=== PATIENT | female | born 1995 | race Caucasian/White ===

== ENCOUNTER 2016-08-16 05:44 | Emergency (ER) | payer OTHER ==
[2016-08-16 07:00] LABS: BASO % 0.1 % (0.0-1.0); EOS # 0.1 K/mm3 (0.0-0.50); EOS % 1.3 % (0.0-3.0); LARGE UNSTAINED CELL # 0.2 K/mm3 (0.0-0.4); LARGE UNSTAINED CELL % 1.9 % (0.0-4.0); LYMPH # 2.1 K/mm3 (1.5-6.5); LYMPH % 19.7 % (24.0-44.0); MEAN CORPUSCULAR HGB CONC 33.9 g/dl (32.0-36.5); MEAN CORPUSCULAR VOLUME 82.6 fl (80.0-96.0); MONO # 0.5 K/mm3 (0.0-0.8); NEUTROPHILS # 7.7 K/mm3 (1.8-7.7); NEUTROPHILS % 72.1 % (36.0-66.0); PLATELET COUNT, AUTOMATED 459 k/mm3 (150-450); RED CELL DISTRIBUTION WIDTH 12.7 % (11.5-14.5); WHITE BLOOD COUNT 10.6 K/mm3 (4.0-10.0)
[2016-08-16 07:09] LABS: CONTROL LINE HCG INT CTR LINE PRESENT
[2016-08-16 07:17] LABS: ALBUMIN 3.7 GM/DL (3.2-5.2); ALBUMIN/GLOBULIN RATIO 1.03 (1.00-1.93); ALKALINE PHOSPHATASE 72 U/L (45-117); ALT/SGPT 26 U/L (12-78); AMYLASE 42 U/L (25-115); ANION GAP 9 MEQ/L (8-16); AST/SGOT 10 U/L (15-37); BILIRUBIN,DIRECT 0.1 MG/DL (0.0-0.2); BILIRUBIN,TOTAL 0.3 MG/DL (0.2-1.0); BLOOD UREA NITROGEN 10 MG/DL (7-18); CALCIUM LEVEL 9.1 MG/DL (8.5-10.1); CARBON DIOXIDE LEVEL 24 MEQ/L (21-32); CHLORIDE LEVEL 108 MEQ/L (98-107); CREATININE FOR GFR 0.79 MG/DL (0.55-1.02); GLUCOSE, FASTING 97 MG/DL (70-105); POTASSIUM SERUM 4.1 MEQ/L (3.5-5.1); SODIUM LEVEL 141 MEQ/L (136-145); TOTAL PROTEIN 7.3 GM/DL (6.4-8.2)
[2016-08-16 07:37] LABS: HCG, SERUM QUANTITATIVE 2855 MIU/ML
--- NOTE | 2016-08-16 08:33 | REP ---
Obstetric sonography: First trimester study. History: Vaginal bleeding. Findings: Transabdominal and transvaginal scanning demonstrate an empty uterus with dimensions of 9.4 x 4.2 x 5.1 cm. No intrauterine gestation is seen. Endometrium is somewhat heterogeneous measuring 1.1 cm. No focal uterine mass is seen. No free fluid is noted in the cul-de-sac. There is a 1.8 cm cystic area in the right ovary consistent with a corpus luteum. Right ovary dimensions of 3.1 x 2.4 x 2.9 cm. Doppler flow in the right ovary is normal with resistive index 0.6. The left ovary is normal measuring 2.5 x 2.9 x 2.2 cm. Its Doppler resistive index 0.9. Impression: Nonspecific findings; no intrauterine gestation seen. No adnexal mass or free fluid. Findings are consistent with spontaneous AB, early IUP, and ectopic cannot be excluded. Clinical and possibly sonographic followup advised. Signed by Best Romero MD 08/16/2016 08:47 A
--- NOTE | 2016-08-16 10:42 | EDDOCDS ---
Nurse's Notes [facility] Name: Gia Florentino Age: 20 yrs Sex: Female : 1995 Arrival Date: 08/16/2016 Time: 05:44 Bed 12 Private MD: Diagnosis: Spontaneous Presentation: 08/16 06:12 Presenting complaint: Patient states: she woke up this morning went to void and when cz wiping had clots and now having abdominal cramping. Risk factors: The patient reports no loss of conciousness prior to arrival. This patient has not had a hysterectomy. This patient has not begun menopause. Adult Sepsis Screening: The patient does not have new or worsening altered mentation. Patient's respiratory rate is less than 22. Systolic blood pressure is greater than 100. Patient has a qSOFA score of 0- Negative Sepsis Screen. Suicide/Homicide risk assessment- the patient denies having any suicidal and/or homicidal ideations and does not present with any other emotional, behavioral or mental health complaints. Status: The patient is a dependent. Transition of care: patient was not received from another setting of care. 06:12 Acuity: MATT Level 3 cz 06:12 Method Of Arrival: Walkin/Carried/Asstd cz Triage Assessment: 06:17 General: Appears distressed, uncomfortable. Pain: Location: pelvis Pain currently is 7 cz out of 10 on a pain scale. At worst was 10 out of 10 on a pain scale. HIV screening NA for this visit Offered previously. 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 Vitamin Oral - PMHx: none; - PSHx: none; - Social history: Smoking status: Patient states was never smoker of tobacco. No barriers to communication noted, The patient speaks fluent [place] Citizen, Speaks appropriately for age. - Family history: Not pertinent. - : The pt / caregiver states he / she is not on anticoagulants. Home medication list is obtained from the patient. - Exposure Risk Screening:: None identified. Screenin:51 Screening information is obtained from the patient. Fall risk: No risks identified. mlc Assistance ADL's: requires no assistance with activities of daily living. Abuse/DV Screen: The patient / caregiver reports he/she is: not in a situation that causes fear, pain or injury. Nutritional screening: No deficits noted. Advance Directives: Currently, there is no health care proxy. home support is adequate. Assessment: 06:51 General: Appears in no apparent distress, Behavior is cooperative, crying. Pain: Denies mlc pain. Neurological: Level of Consciousness is awake, alert, obeys commands, Oriented to person, place, time. Respiratory: Airway is patent Respiratory effort is even, unlabored, Respiratory pattern is regular. GI: Abdomen is non- distended Bowel sounds present X 4 quads. Abd is soft X 4 quads Denies nausea, vomiting. : Reports vaginal bleeding that is with clots. Derm: Skin is normal. 06:52 General: pt reports she is approx 7-8 weeks . . [facility] 07:02 Reassessment: report given to Taryn Dockery RN. [facility] 07:25 General: Appears in no apparent distress, Behavior is appropriate for age, cooperative. pml Pain: Location: pelvis Pain currently is 7 out of 10 on a pain scale. Neurological: Level of Consciousness is awake, alert, Oriented to person, place, time. Cardiovascular: Capillary refill < 3 seconds. Respiratory: Airway is patent Respiratory effort is even, unlabored. GI: Abdomen is non- distended. : Reports vaginal bleeding that is bright red with clots heavy flow. Derm: Skin is pink, warm & dry. 08:40 General: Assist provider with pelvic exam, product of conception noted in vaginal pml fault, collected and prepared as per [facility] policy. support extended to patient and spouse. . 09:38 General: Appears in no apparent distress, Behavior is appropriate for age, cooperative. pml Pain: Denies pain. Neurological: Level of Consciousness is awake, alert, Oriented to person, place, time. Cardiovascular: Capillary refill < 3 seconds. Respiratory: Airway is patent Respiratory effort is even, unlabored. GI: Abdomen is non- distended obese. : Reports vaginal bleeding that is decreased following pelvic exam and passage of POC. Derm: Skin is pink, warm & dry. 10:38 General: Appears in no apparent distress, Behavior is appropriate for age, cooperative. pml Pain: Denies pain. Neurological: Level of Consciousness is awake, alert, Oriented to person, place, time. Cardiovascular: Capillary refill < 3 seconds. Respiratory: Airway is patent Respiratory effort is even, unlabored. GI: Abdomen is non- distended obese. : Reports vaginal bleeding that is bright red light flow. Derm: Skin is pink, warm & dry. Vital Signs: 06:17 BP 147 / 100; Pulse 110; Resp 16; Temp 98.9; Pulse Ox 95% on R/A; Weight 113.4 kg; cz Height 5 ft. 5 in. (165.10 cm); 06:51 BP 131 / 85 Supine; Pulse 85; mlc 06:51 BP 129 / 80 Sitting; Pulse 91; mlc 06:51 BP 146 / 85 Standing; Pulse 92; mlc 10:12 BP 124 / 76; Pulse 74; Resp 18; Temp 99.0(O); Pulse Ox 99% on R/A; Pain 5/10; ct3 10:36 BP 129 / 73; Pulse 80; Resp 18; Temp 97.7(O); Pulse Ox 96% on R/A; Pain 5/10; nb2 06:17 Body Mass Index 41.60 (113.40 kg, 165.10 cm) Vitals: 06:17 Log In Time: August 16, 2016 at 05:46. ED Course: 05:46 Patient visited by Radha Soto Reg. hs2 05:46 Patient moved to Waiting hs2 06:16 Triage Initiated cz 06:18 Padma Seaman,RN is Primary Nurse. cz 06:18 Patient moved to 12 cz 06:46 Patient visited by Sridhar Tejeda PCA. kb5 06:49 Patient visited by Gracia Blanchard LPN. cp1 06:49 Amylase Sent. cp1 06:49 Basic Metabolic Profile Sent. cp1 06:49 Lipase Sent. cp1 06:49 Liver Profile Sent. cp1 06:50 HCG,Serum Qualitative Sent. cp1 06:50 Type & Screen Sent. cp1 06:50 CBC with Diff Sent. cp1 06:52 Patient visited by Padma Seaman RN. mlc 06:53 Inserted saline lock: 20 gauge in right antecubital area and blood collected. The cp1 patient tolerated the procedure well. 06:55 Natalie Boss MD is Attending Physician. ml 06:55 Patient visited by Natalie Boss MD. ml 07:23 Taryn Dockery,LEXII is Primary Nurse. pml 07:25 The patient / caregiver is instructed regarding the plan of care and ED course. Patient pml has correct armband on for positive identification. Placed in gown. Bed in low position. Call light in reach. Side rails up X2. 07:26 Patient visited by Taryn Dockery,LEXII. pml 07:26 Patient moved to Ultrasound br3 07:29 Primary Nurse role handed off by Padma Seaman RN [id number] 08:09 Patient moved to 12 br3 08:22 [facility] Payment Agreement was scanned into [employer] and attached to record. [id number] 08:25 Assist provider with pelvic exam: Set up pelvic tray. Specimens sent to lab. POC pml passed, sent to pathology, Performed by Natalie Boss MD Patient tolerated well. 08:41 1ST TRIMESTER US Returned. EDMS 08:42 Patient visited by Taryn Dockery RN. pml 09:17 Patient visited by Glendy Abreu PCA. ct3 09:37 Draw Rhogam Sent. pml 09:39 Patient visited by Taryn Dockery RN. pml 10:01 Patient visited by Taryn Dockery,LEXII. pml 10:06 Scott Lemus MD is Referral Physician. ml 10:13 Patient visited by Glendy Abreu PCA. ct3 10:36 Patient visited by Vane Roy. nb2 Administered Medications: 06:50 Drug: NS 0.9% 1000 ml [sodium chloride 0.9 % intravenous solution] Route: IV; Rate: mlc bolus; Site: right antecubital; 10:40 Follow up: IV Status: Completed infusion; IV Intake: 1000ml pml 08:38 CANCELLED (Other Intervention Used): Tetanus- Diptheria-Acellular Pertussis 0.5 ml IM ml once; Routine booster 10-64yrs, >64 with child contact [employer] 09:37 Drug: -RhoGAM Ultra-Filtered Plus 300 mcg [RhoGAM Ultra-Filtered PLUS 1,500 unit (300 pml mcg) intramuscular syringe (300 mcg)] Route: IM; Site: right gluteus; Intake: 10:40 IV: 1000.00ml; Total: 1000.00ml. pml Order Results: Lab Order: CBC with Diff; SPEC'M 08/16/16 06:47 Test: WHITE BLOOD COUNT; Value: 10.6; Range: 4.0-10.0; Abnormal: Above high normal; Units: K/mm3; Status: F Test: RED BLOOD COUNT; Value: 4.99; Range: 4.00-5.40; Units: M/mm3; Status: F Test: HEMOGLOBIN; Value: 14.0; Range: 12.0-16.0; Units: g/dl; Status: F Test: HEMATOCRIT; Value: 41.2; Range: 36.0-47.0; Units: %; Status: F Test: MEAN CORPUSCULAR VOLUME; Value: 82.6; Range: 80.0-96.0; Units: fl; Status: F Test: MEAN CORPUSCULAR HEMOGLOBIN; Value: 28.0; Range: 27.0-33.0; Units: pg; Status: F Test: MEAN CORPUSCULAR HGB CONC; Value: 33.9; Range: 32.0-36.5; Units: g/dl; Status: F Test: RED CELL DISTRIBUTION WIDTH; Value: 12.7; Range: 11.5-14.5; Units: %; Status: F Test: PLATELET COUNT, AUTOMATED; Value: 459; Range: 150-450; Abnormal: Above high normal; Units: k/mm3; Status: F Test: NEUTROPHILS %; Value: 72.1; Range: 36.0-66.0; Abnormal: Above high normal; Units: %; Status: F Test: LYMPH %; Value: 19.7; Range: 24.0-44.0; Abnormal: Below low normal; Units: %; Status: F Test: MONO %; Value: 5.0; Range: 0.0-5.0; Units: %; Status: F Test: EOS %; Value: 1.3; Range: 0.0-3.0; Units: %; Status: F Test: BASO %; Value: 0.1; Range: 0.0-1.0; Units: %; Status: F Test: LARGE UNSTAINED CELL %; Value: 1.9; Range: 0.0-4.0; Units: %; Status: F Test: NEUTROPHILS #; Value: 7.7; Range: 1.8-7.7; Units: K/mm3; Status: F Test: LYMPH #; Value: 2.1; Range: 1.5-6.5; Units: K/mm3; Status: F Test: MONO #; Value: 0.5; Range: 0.0-0.8; Units: K/mm3; Status: F Test: EOS #; Value: 0.1; Range: 0.0-0.50; Units: K/mm3; Status: F Test: BASO #; Value: 0.0; Range: 0.0-0.2; Units: K/mm3; Status: F Test: LARGE UNSTAINED CELL #; Value: 0.2; Range: 0.0-0.4; Units: K/mm3; Status: F Lab Order: Type & Screen; [facility] 08/16/16 06:47 Test: BLOOD TYPE; Value: A NEG; Status: F Test: AB SCREEN (INDIRECT CAITLIN)GEL; Value: NEGATIVE; Status: F Lab Order: HCG,Serum Qualitative; 08/16/16 06:47 Test: HCG, SERUM QUALITATIVE; Value: POSITIVE; Range: NEGATIVE; Abnormal: Abnormal; Status: F Lab Order: Amylase; [facility] 08/16/16 06:47 Test: AMYLASE; Value: 42; Range: 25-115; Units: U/L; Status: F Lab Order: Basic Metabolic Profile; 08/16/16 06:47 Test: GLUCOSE, FASTING; Value: 97; Range: 70-105; Units: MG/DL; Status: F Test: BLOOD UREA NITROGEN; Value: 10; Range: 7-18; Units: MG/DL; Status: F Test: CREATININE FOR GFR; Value: 0.79; Range: 0.55-1.02; Units: MG/DL; Status: F Test: SODIUM LEVEL; Value: 141; Range: 136-145; Units: MEQ/L; Status: F Test: POTASSIUM SERUM; Value: 4.1; Range: 3.5-5.1; Units: MEQ/L; Status: F Test: CHLORIDE LEVEL; Value: 108; Range: 98-107; Abnormal: Above high normal; Units: MEQ/L; Status: F Test: CARBON DIOXIDE LEVEL; Value: 24; Range: 21-32; Units: MEQ/L; Status: F Test: ANION GAP; Value: 9; Range: 8-16; Units: MEQ/L; Status: F Test: CALCIUM LEVEL; Value: 9.1; Range: 8.5-10.1; Units: MG/DL; Status: F Lab Order: Lipase; [facility] 08/16/16 06:47 Test: LIPASE; Value: 80; Range: 73-393; Units: U/L; Status: F Lab Order: Liver Profile; [facility] 08/16/16 06:47 Test: AST/SGOT; Value: 10; Range: 15-37; Abnormal: Below low normal; Units: U/L; Status: F Test: ALT/SGPT; Value: 26; Range: 12-78; Units: U/L; Status: F Test: ALKALINE PHOSPHATASE; Value: 72; Range: 45-117; Units: U/L; Status: F Test: BILIRUBIN,TOTAL; Value: 0.3; Range: 0.2-1.0; Units: MG/DL; Status: F Test: BILIRUBIN,DIRECT; Value: 0.1; Range: 0.0-0.2; Units: MG/DL; Status: F Test: TOTAL PROTEIN; Value: 7.3; Range: 6.4-8.2; Units: GM/DL; Status: F Test: ALBUMIN; Value: 3.7; Range: 3.2-5.2; Units: GM/DL; Status: F Test: ALBUMIN/GLOBULIN RATIO; Value: 1.03; Range: 1.00-1.93; Status: F Lab Order: Wet Prep; [facility] 08/16/16 10:05 Test: WET PREP; Value: WET PREP RESULT; Status: F Test: WET PREP; Value: MANY RBC; Status: F Test: WET PREP; Value: FEW EPITHELIAL CELLS PRESENT; Status: F Test: WET PREP; Value: FEW LONG RODS PRESENT; Status: F Lab Order: HCG, SERUM QUANTITATIVE; [facility] 08/16/16 06:47 Test: HCG, SERUM QUANTITATIVE; Value: 2855; Units: MIU/ML; Status: F Test Note: ; GESTATIONAL AGE APPROXIMATE HCG RANGE (MIU/ML) 0.2-1 WEEK 5-50 1-2 WEEKS 50-500 2-3 WEEKS 100-5,000 3-4 WEEKS 500-10,000 4-5 WEEKS 1,000-50,000 5-6 WEEKS 10,000-100,000 6-8 WEEKS 15,000-200,000 2-3 MONTHS 10,000-100,000 NON FEMALES LESS THAN 3.0 Patient samples may contain human heterophilic antibodies that could react with immunoassays to give falsely elevated or depressed results. This assay has been designed to minimize interference from heterophilic antibodies. Elevated hCG levels have also been associated with trophoblastic disease and nontrophoblastic neoplasms. The possibility of having these diseases should be considered before a diagnosis of is made. This test is not intended for use as a surrogate marker for aiding in the diagnosis or monitoring the treatment of cancer patients. [employer] methodology. Radiology Order: 1ST TRIMESTER US Test: 1ST TRIMESTER US REASON FOR EXAMINATION: vag bleeding 06/24/16 lmp; Obstetric sonography: First trimester study.; ; History: Vaginal bleeding.; ; Findings: Transabdominal and transvaginal scanning demonstrate an empty uterus; with dimensions of 9.4 x 4.2 x 5.1 cm. No intrauterine gestation is seen.; Endometrium is somewhat heterogeneous measuring 1.1 cm. No focal uterine mass is; seen. No free fluid is noted in the cul-de-sac. There is a 1.8 cm cystic area; in the right ovary consistent with a corpus luteum. Right ovary dimensions of; 3.1 x 2.4 x 2.9 cm. Doppler flow in the right ovary is normal with resistive; index 0.6.; ; The left ovary is normal measuring 2.5 x 2.9 x 2.2 cm. Its Doppler resistive; index 0.9.; ; Impression:; ; Nonspecific findings; no intrauterine gestation seen. No adnexal mass or free; fluid. Findings are consistent with spontaneous AB, early IUP, and ectopic; cannot be excluded. Clinical and possibly sonographic followup; advised.; ; ; Signed by; Best Romero MD 08/16/2016 08:47 A; Outcome: 10:06 Discharge ordered by Provider. ml 10:38 Discharge Assessment: Patient awake, alert and oriented x 3. No cognitive and/or pml functional deficits noted. Patient verbalized understanding of disposition instructions. patient administered narcotics - no. The following High Risk Discharge criteria are identified: None. Discharged to home ambulatory, with significant other. Condition: good Condition: stable. Discharge instructions given to patient, Instructed on discharge instructions, follow up and referral plans. Demonstrated understanding of instructions, Pt was receptive of discharge instructions/ teaching. Ultrasound Study completed. Property sent home with patient. 10:41 Patient left the ED. pml Signatures: Dispatcher [employer] EDMS Natalie Boss MD MD Ronaldo Dao RN RN cz Sridhar Tejeda, WIRE ROPE FABRICATION SUPERVISOR WIRE ROPE FABRICATION SUPERVISOR kb5 Elaine Galo br3 Gracia Blanchard,HEALTH CARE ATTORNEY HEALTH CARE ATTORNEY cp1 Glnedy Abreu, WIRE ROPE FABRICATION SUPERVISOR WIRE ROPE FABRICATION SUPERVISOR ct3 Taryn DockeryRN RN Mitra SiblyeRN RN js13 Padma SeamanRN RN [facility] Radha Soto, Reg Reg hs2 Baburke, Vane nb2 Tiffany Morrison dm19 Corrections: (The following items were deleted from the chart) 08:56 06:17 LMP 06/24/2016 cz pml MTDD
--- NOTE | 2016-08-16 10:42 | EDDOCDS ---
Physician Documentation [facility] Name: Gia Florentino Age: 20 yrs Sex: Female : 1995 Arrival Date: 08/16/2016 Time: 05:44 Bed 12 Private MD: Disposition: 08/16/16 10:06 Discharged to Home/Self Care. Impression: Spontaneous . - Condition is Stable. - Discharge Instructions: Miscarriage. - Medication Reconciliation, Local Pharmacy Hours form. - Follow up: Allan, MD Scott; When: 1 - 2 days. - Problem is new. - Symptoms have improved. - Notes: Ispoke to Dr Lemus who would like to see you in follow up. Return if increasing pain, vaginal bleeding or fever. Historical: - Allergies: No known drug Allergies; - Home Meds: 1. Vitamin Oral - PMHx: none; - PSHx: none; - Social history: Smoking status: Patient states was never smoker of tobacco. No barriers to communication noted, The patient speaks fluent Turk[place], Speaks appropriately for age. - Family history: Not pertinent. - : The pt / caregiver states he / she is not on anticoagulants. Home medication list is obtained from the patient. - Exposure Risk Screening:: None identified. 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 5 in. (165.10 cm); 06:51 BP 131 / 85 Supine; Pulse 85; mlc 06:51 BP 129 / 80 Sitting; Pulse 91; mlc 06:51 BP 146 / 85 Standing; Pulse 92; mlc 10:12 BP 124 / 76; Pulse 74; Resp 18; Temp 99.0(O); Pulse Ox 99% on R/A; Pain 5/10; ct3 10:36 BP 129 / 73; Pulse 80; Resp 18; Temp 97.7(O); Pulse Ox 96% on R/A; Pain 5/10; nb2 06:17 Body Mass Index 41.60 (113.40 kg, 165.10 cm) cz MDM: 06:35 Orthostatic VS ordered. ml 06:35 IV Saline Lock ordered. mm11 06:35 Undress patient appropriately for examination ordered. mm11 06:35 NS 0.9% 1000 ml IV at bolus once ordered. mm11 06:36 CBC with Diff Ordered. EDMS 06:36 HCG,Serum Qualitative Ordered. EDMS 06:36 Amylase Ordered. EDMS 06:36 Basic Metabolic Profile Ordered. EDMS 06:36 Lipase Ordered. EDMS 06:36 Liver Profile Ordered. EDMS 06:36 Type & Screen Ordered. EDMS 06:37 NOTHING BY MOUTH+DIET ordered. EDMS 07:06 Set up pelvic ordered. ml 07:07 GC & Chlamydia Amplification Ordered. EDMS 07:07 Wet Prep Ordered. EDMS 07:12 HCG, SERUM QUANTITATIVE Ordered. EDMS 07:12 1ST TRIMESTER US Ordered. EDMS 08:00 TRANSVAGINAL US Ordered. EDMS 08:00 DUPLEX SCAN LIMITED (DOPPLER) Ordered. EDMS 08:22 [facility] Payment Agreement was scanned into [email or web address] and attached to record. dm19 08:22 Financial registration complete. dm19 08:37 -RhoGAM Ultra-Filtered Plus 300 mcg IM once ordered. ml 08:37 Misc. Nursing Order ordered. ml 08:38 Draw Rhogam Ordered. EDMS 08:50 Products of Conception ordered. ml 09:12 Products of Conception complete. ar3 09:13 PATHOLOGY REQUEST FOR SERVICE Ordered. EDMS 10:05 CBC with Diff Reviewed. ml 10:05 HCG,Serum Qualitative Reviewed. ml 10:05 Basic Metabolic Profile Reviewed. ml 10:05 Liver Profile Reviewed. ml 10:05 Type & Screen Reviewed. ml 10:05 Amylase Reviewed. ml 10:05 Lipase Reviewed. ml 10:05 HCG, SERUM QUANTITATIVE Reviewed. ml 10:05 1ST TRIMESTER US Reviewed. ml Administered Medications: 06:50 Drug: NS 0.9% 1000 ml [sodium chloride 0.9 % intravenous solution] Route: IV; Rate: mlc bolus; Site: right antecubital; 10:40 Follow up: IV Status: Completed infusion; IV Intake: 1000ml pml 08:38 CANCELLED (Other Intervention Used): Tetanus- Diptheria-Acellular Pertussis 0.5 ml IM ml once; Routine booster 10-64yrs, >64 with child [facility] 09:37 Drug: -RhoGAM Ultra-Filtered Plus 300 mcg [RhoGAM Ultra-Filtered PLUS 1,500 unit (300 pml mcg) intramuscular syringe (300 mcg)] Route: IM; Site: right gluteus; Signatures: Dispatcher [employer] EDMS Natalie Boss MD MD ml Zecher, Calvin, RN RN Lemuel Harris, DO mm11 Allyson, Stacy, TRAFFIC SIGN ERECTION SUPERVISOR TRAFFIC SIGN ERECTION SUPERVISOR ar3 Taryn Dockery RN RN pml Booth, Mandy, RN RN [facility] Tiffany Morrison dm19 The chart was reviewed and I authenticate all verbal orders and agree with the evaluation and treatment provided.Corrections: (The following items were deleted from the chart) 06:37 06:36 CBC WITH DIFFERENTIAL+LAB ordered. EDMS EDMS 06:37 06:36 HCG, QUALITATIVE+LAB ordered. EDMS EDMS 06:37 06:37 TYPE & SCREEN+BBK ordered. EDMS EDMS 07:12 07:05 HCG, SERUM QUANTITATIVE+LAB ordered. EDMS EDMS 07:12 07:05 US OBS SINGEL GEST+US ordered. EDMS EDMS 08:38 08:38 Tetanus- Diptheria-Acellular Pertussis 0.5 ml IM once; Routine booster ml 10-64yrs, >64 with child contact Sigifredo Wild ordered. ml Attachments: 08:22 [facility] Payment Agreement dm19 MTDD
--- NOTE | 2016-08-19 10:50 | EDDOCDS ---
Physician Documentation [facility] Name: Gia Florentino Age: 20 yrs Sex: Female : 1995 Arrival Date: 08/16/2016 Time: 05:44 Bed 12 Private MD: Disposition: 08/16/16 10:06 Discharged to Home/Self Care. Impression: Spontaneous . - Condition is Stable. - Discharge Instructions: Miscarriage. - Medication Reconciliation, Local Pharmacy Hours form. - Follow up: Allan, MD Scott; When: 1 - 2 days. - Problem is new. - Symptoms have improved. - Notes: Ispoke to Dr Lemus who would like to see you in follow up. Return if increasing pain, vaginal bleeding or fever. Historical: - Allergies: No known drug Allergies; - Home Meds: 1. Vitamin Oral - PMHx: none; - PSHx: none; - Social history: Smoking status: Patient states was never smoker of tobacco. No barriers to communication noted, The patient speaks fluent Greenlandic, Speaks appropriately for age. - Family history: Not pertinent. - : The pt / caregiver states he / she is not on anticoagulants. Home medication list is obtained from the patient. - Exposure Risk Screening:: None identified. 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 5 in. (165.10 cm); 06:51 BP 131 / 85 Supine; Pulse 85; mlc 06:51 BP 129 / 80 Sitting; Pulse 91; mlc 06:51 BP 146 / 85 Standing; Pulse 92; mlc 10:12 BP 124 / 76; Pulse 74; Resp 18; Temp 99.0(O); Pulse Ox 99% on R/A; Pain 5/10; ct3 10:36 BP 129 / 73; Pulse 80; Resp 18; Temp 97.7(O); Pulse Ox 96% on R/A; Pain 5/10; nb2 06:17 Body Mass Index 41.60 (113.40 kg, 165.10 cm) cz MDM: 06:35 Orthostatic VS ordered. ml 06:35 IV Saline Lock ordered. mm11 06:35 Undress patient appropriately for examination ordered. mm11 06:35 NS 0.9% 1000 ml IV at bolus once ordered. mm11 06:36 CBC with Diff Ordered. EDMS 06:36 HCG,Serum Qualitative Ordered. EDMS 06:36 Amylase Ordered. EDMS 06:36 Basic Metabolic Profile Ordered. EDMS 06:36 Lipase Ordered. EDMS 06:36 Liver Profile Ordered. EDMS 06:36 Type & Screen Ordered. EDMS 06:37 NOTHING BY MOUTH+DIET ordered. EDMS 07:06 Set up pelvic ordered. ml 07:07 GC & Chlamydia Amplification Ordered. EDMS 07:07 Wet Prep Ordered. EDMS 07:12 HCG, SERUM QUANTITATIVE Ordered. EDMS 07:12 1ST TRIMESTER US Ordered. EDMS 08:00 TRANSVAGINAL US Ordered. EDMS 08:00 DUPLEX SCAN LIMITED (DOPPLER) Ordered. EDMS 08:22 [facility] [place] Payment Agreement was scanned into [employer] and attached to record. dm19 08:22 Financial registration complete. dm19 08:37 -RhoGAM Ultra-Filtered Plus 300 mcg IM once ordered. ml 08:37 Misc. Nursing Order ordered. ml 08:38 Draw Rhogam Ordered. EDMS 08:50 Products of Conception ordered. ml 09:12 Products of Conception complete. ar3 09:13 PATHOLOGY REQUEST FOR SERVICE Ordered. EDMS 10:05 CBC with Diff Reviewed. ml 10:05 HCG,Serum Qualitative Reviewed. ml 10:05 Basic Metabolic Profile Reviewed. ml 10:05 Liver Profile Reviewed. ml 10:05 Type & Screen Reviewed. ml 10:05 Amylase Reviewed. ml 10:05 Lipase Reviewed. ml 10:05 HCG, SERUM QUANTITATIVE Reviewed. ml 10:05 1ST TRIMESTER US Reviewed. ml 21:23 T-Sheet-- Draft Copy was scanned into [employer] and attached to record. klr 08/17 09:56 Other: CERTIFICATION INFO was scanned into [employer] and attached to record. gb Administered Medications: 08/16 06:50 Drug: NS 0.9% 1000 ml [sodium chloride 0.9 % intravenous solution] Route: IV; Rate: mlc bolus; Site: right antecubital; 10:40 Follow up: IV Status: Completed infusion; IV Intake: 1000ml pml 08:38 CANCELLED (Other Intervention Used): Tetanus- Diptheria-Acellular Pertussis 0.5 ml IM ml once; Routine booster 10-64yrs, >64 with child contact Sigifredo Omnicell 09:37 Drug: -RhoGAM Ultra-Filtered Plus 300 mcg [RhoGAM Ultra-Filtered PLUS 1,500 unit (300 pml mcg) intramuscular syringe (300 mcg)] Route: IM; Site: right gluteus; Signatures: Dispatcher [employer] EDNatalie Haley MD MD ml Zecher, Calvin, RN RN cz Princess Saleh, Reg Reg gb Lemuel Molina, DO DO mm11 Allyson, Stacy, EXTRACTOR OPERATOR SOLVENT PROCESS EXTRACTOR OPERATOR SOLVENT PROCESS ar3 Taryn Dockery RN RN Padma Moses RN RN mlc Redder, Kathie klr McLear, Diane dm19 The chart was reviewed and I authenticate all verbal orders and agree with the evaluation and treatment provided.Corrections: (The following items were deleted from the chart) 06:37 06:36 CBC WITH DIFFERENTIAL+LAB ordered. EDMS EDMS 06:37 06:36 HCG, QUALITATIVE+LAB ordered. EDMS EDMS 06:37 06:37 TYPE & SCREEN+BBK ordered. EDMS EDMS 07:12 07:05 HCG, SERUM QUANTITATIVE+LAB ordered. EDMS EDMS 07:12 07:05 US OBS SINGEL GEST+US ordered. EDMS EDMS 08:38 08:38 Tetanus- Diptheria-Acellular Pertussis 0.5 ml IM once; Routine booster ml 10-64yrs, >64 with child contact [place] ordered. ml Attachments: 08:22 [facility] Payment Agreement dm19 21:23 T-Sheet-- Draft Copy klr Chart Complete MTDD
--- NOTE | 2016-08-19 10:50 | EDDOCDS ---
Physician Documentation [facility] Name: Gia Florentino Age: 20 yrs Sex: Female : 1995 Arrival Date: 08/16/2016 Time: 05:44 Bed 12 Private MD: Disposition: 08/16/16 10:06 Discharged to Home/Self Care. Impression: Spontaneous . - Condition is Stable. - Discharge Instructions: Miscarriage. - Medication Reconciliation, Local Pharmacy Hours form. - Follow up: Allan, MD Scott; When: 1 - 2 days. - Problem is new. - Symptoms have improved. - Notes: Ispoke to Dr Lemus who would like to see you in follow up. Return if increasing pain, vaginal bleeding or fever. Historical: - Allergies: No known drug Allergies; - Home Meds: 1. Vitamin Oral - PMHx: none; - PSHx: none; - Social history: Smoking status: Patient states was never smoker of tobacco. No barriers to communication noted, The patient speaks fluent Maori, Speaks appropriately for age. - Family history: Not pertinent. - : The pt / caregiver states he / she is not on anticoagulants. Home medication list is obtained from the patient. - Exposure Risk Screening:: None identified. 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 5 in. (165.10 cm); 06:51 BP 131 / 85 Supine; Pulse 85; mlc 06:51 BP 129 / 80 Sitting; Pulse 91; mlc 06:51 BP 146 / 85 Standing; Pulse 92; mlc 10:12 BP 124 / 76; Pulse 74; Resp 18; Temp 99.0(O); Pulse Ox 99% on R/A; Pain 5/10; ct3 10:36 BP 129 / 73; Pulse 80; Resp 18; Temp 97.7(O); Pulse Ox 96% on R/A; Pain 5/10; nb2 06:17 Body Mass Index 41.60 (113.40 kg, 165.10 cm) cz MDM: 06:35 Orthostatic VS ordered. ml 06:35 IV Saline Lock ordered. mm11 06:35 Undress patient appropriately for examination ordered. mm11 06:35 NS 0.9% 1000 ml IV at bolus once ordered. mm11 06:36 CBC with Diff Ordered. EDMS 06:36 HCG,Serum Qualitative Ordered. EDMS 06:36 Amylase Ordered. EDMS 06:36 Basic Metabolic Profile Ordered. EDMS 06:36 Lipase Ordered. EDMS 06:36 Liver Profile Ordered. EDMS 06:36 Type & Screen Ordered. EDMS 06:37 NOTHING BY MOUTH+DIET ordered. EDMS 07:06 Set up pelvic ordered. ml 07:07 GC & Chlamydia Amplification Ordered. EDMS 07:07 Wet Prep Ordered. EDMS 07:12 HCG, SERUM QUANTITATIVE Ordered. EDMS 07:12 1ST TRIMESTER US Ordered. EDMS 08:00 TRANSVAGINAL US Ordered. EDMS 08:00 DUPLEX SCAN LIMITED (DOPPLER) Ordered. EDMS 08:22 [facility] Payment Agreement was scanned into [employer] and attached to record. dm19 08:22 Financial registration complete. dm19 08:37 -RhoGAM Ultra-Filtered Plus 300 mcg IM once ordered. ml 08:37 Misc. Nursing Order ordered. ml 08:38 Draw Rhogam Ordered. EDMS 08:50 Products of Conception ordered. ml 09:12 Products of Conception complete. ar3 09:13 PATHOLOGY REQUEST FOR SERVICE Ordered. EDMS 10:05 CBC with Diff Reviewed. ml 10:05 HCG,Serum Qualitative Reviewed. ml 10:05 Basic Metabolic Profile Reviewed. ml 10:05 Liver Profile Reviewed. ml 10:05 Type & Screen Reviewed. ml 10:05 Amylase Reviewed. ml 10:05 Lipase Reviewed. ml 10:05 HCG, SERUM QUANTITATIVE Reviewed. ml 10:05 1ST TRIMESTER US Reviewed. ml 21:23 T-Sheet-- Draft Copy was scanned into [employer] and attached to record. klr 08/17 09:56 Other: CERTIFICATION INFO was scanned into [employer] and attached to record. gb Administered Medications: 08/16 06:50 Drug: NS 0.9% 1000 ml [sodium chloride 0.9 % intravenous solution] Route: IV; Rate: mlc bolus; Site: right antecubital; 10:40 Follow up: IV Status: Completed infusion; IV Intake: 1000ml pml 08:38 CANCELLED (Other Intervention Used): Tetanus- Diptheria-Acellular Pertussis 0.5 ml IM ml once; Routine booster 10-64yrs, >64 with child contact Sigifredo Omnicell 09:37 Drug: -RhoGAM Ultra-Filtered Plus 300 mcg [RhoGAM Ultra-Filtered PLUS 1,500 unit (300 pml mcg) intramuscular syringe (300 mcg)] Route: IM; Site: right gluteus; Signatures: Dispatcher [employer] EDNatalie Haley MD MD ml Zecher, Calvin, RN RN cz Princess Saleh, Reg Reg gb Lemuel Molina, DO DO mm11 Allyson, Stacy, EDUCATIONAL INTERPRETER EDUCATIONAL INTERPRETER ar3 Taryn Dockery RN RN Padma Moses RN RN mlc Redder, Kathie klr McLear, Diane dm19 The chart was reviewed and I authenticate all verbal orders and agree with the evaluation and treatment provided.Corrections: (The following items were deleted from the chart) 06:37 06:36 CBC WITH DIFFERENTIAL+LAB ordered. EDMS EDMS 06:37 06:36 HCG, QUALITATIVE+LAB ordered. EDMS EDMS 06:37 06:37 TYPE & SCREEN+BBK ordered. EDMS EDMS 07:12 07:05 HCG, SERUM QUANTITATIVE+LAB ordered. EDMS EDMS 07:12 07:05 US OBS SINGEL GEST+US ordered. EDMS EDMS 08:38 08:38 Tetanus- Diptheria-Acellular Pertussis 0.5 ml IM once; Routine booster ml 10-64yrs, >64 with child contact [place] ordered. ml Attachments: 08:22 [facility] Payment Agreement dm19 21:23 T-Sheet-- Draft Copy klr Chart Complete MTDD
--- NOTE | 2016-08-19 10:51 | EDDOCDS ---
Nurse's Notes [facility] Name: Gia Florentino Age: 20 yrs Sex: Female : 1995 Arrival Date: 08/16/2016 Time: 05:44 Bed 12 Private MD: Diagnosis: Spontaneous Presentation: 08/16 06:12 Presenting complaint: Patient states: she woke up this morning went to void and when cz wiping had clots and now having abdominal cramping. Risk factors: The patient reports no loss of conciousness prior to arrival. This patient has not had a hysterectomy. This patient has not begun menopause. Adult Sepsis Screening: The patient does not have new or worsening altered mentation. Patient's respiratory rate is less than 22. Systolic blood pressure is greater than 100. Patient has a qSOFA score of 0- Negative Sepsis Screen. Suicide/Homicide risk assessment- the patient denies having any suicidal and/or homicidal ideations and does not present with any other emotional, behavioral or mental health complaints. Status: The patient is a dependent. Transition of care: patient was not received from another setting of care. 06:12 Acuity: MATT Level 3 cz 06:12 Method Of Arrival: Walkin/Carried/Asstd cz Triage Assessment: 06:17 General: Appears distressed, uncomfortable. Pain: Location: pelvis Pain currently is 7 cz out of 10 on a pain scale. At worst was 10 out of 10 on a pain scale. HIV screening NA for this visit Offered previously. 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 Vitamin Oral - PMHx: none; - PSHx: none; - Social history: Smoking status: Patient states was never smoker of tobacco. No barriers to communication noted, The patient speaks fluent Libyan, Speaks appropriately for age. - Family history: Not pertinent. - : The pt / caregiver states he / she is not on anticoagulants. Home medication list is obtained from the patient. - Exposure Risk Screening:: None identified. Screenin:51 Screening information is obtained from the patient. Fall risk: No risks identified. mlc Assistance ADL's: requires no assistance with activities of daily living. Abuse/DV Screen: The patient / caregiver reports he/she is: not in a situation that causes fear, pain or injury. Nutritional screening: No deficits noted. Advance Directives: Currently, there is no health care proxy. home support is adequate. Assessment: 06:51 General: Appears in no apparent distress, Behavior is cooperative, crying. Pain: Denies mlc pain. Neurological: Level of Consciousness is awake, alert, obeys commands, Oriented to person, place, time. Respiratory: Airway is patent Respiratory effort is even, unlabored, Respiratory pattern is regular. GI: Abdomen is non- distended Bowel sounds present X 4 quads. Abd is soft X 4 quads Denies nausea, vomiting. : Reports vaginal bleeding that is with clots. Derm: Skin is normal. 06:52 General: pt reports she is approx 7-8 weeks . . [facility] [place] 07:02 Reassessment: report given to Taryn Dockery RN. [facility] [place] 07:25 General: Appears in no apparent distress, Behavior is appropriate for age, cooperative. pml Pain: Location: pelvis Pain currently is 7 out of 10 on a pain scale. Neurological: Level of Consciousness is awake, alert, Oriented to person, place, time. Cardiovascular: Capillary refill < 3 seconds. Respiratory: Airway is patent Respiratory effort is even, unlabored. GI: Abdomen is non- distended. : Reports vaginal bleeding that is bright red with clots heavy flow. Derm: Skin is pink, warm & dry. 08:40 General: Assist provider with pelvic exam, product of conception noted in vaginal pml fault, collected and prepared as per [facility] policy. support extended to patient and spouse. . 09:38 General: Appears in no apparent distress, Behavior is appropriate for age, cooperative. pml Pain: Denies pain. Neurological: Level of Consciousness is awake, alert, Oriented to person, place, time. Cardiovascular: Capillary refill < 3 seconds. Respiratory: Airway is patent Respiratory effort is even, unlabored. GI: Abdomen is non- distended obese. : Reports vaginal bleeding that is decreased following pelvic exam and passage of POC. Derm: Skin is pink, warm & dry. 10:38 General: Appears in no apparent distress, Behavior is appropriate for age, cooperative. pml Pain: Denies pain. Neurological: Level of Consciousness is awake, alert, Oriented to person, place, time. Cardiovascular: Capillary refill < 3 seconds. Respiratory: Airway is patent Respiratory effort is even, unlabored. GI: Abdomen is non- distended obese. : Reports vaginal bleeding that is bright red light flow. Derm: Skin is pink, warm & dry. Vital Signs: 06:17 BP 147 / 100; Pulse 110; Resp 16; Temp 98.9; Pulse Ox 95% on R/A; Weight 113.4 kg; cz Height 5 ft. 5 in. (165.10 cm); 06:51 BP 131 / 85 Supine; Pulse 85; mlc 06:51 BP 129 / 80 Sitting; Pulse 91; mlc 06:51 BP 146 / 85 Standing; Pulse 92; mlc 10:12 BP 124 / 76; Pulse 74; Resp 18; Temp 99.0(O); Pulse Ox 99% on R/A; Pain 5/10; ct3 10:36 BP 129 / 73; Pulse 80; Resp 18; Temp 97.7(O); Pulse Ox 96% on R/A; Pain 5/10; nb2 06:17 Body Mass Index 41.60 (113.40 kg, 165.10 cm) Vitals: 06:17 Log In Time: August 16, 2016 at 05:46. ED Course: 05:46 Patient visited by Radha Soto Reg. hs2 05:46 Patient moved to Waiting hs2 06:16 Triage Initiated cz 06:18 Padma Seaman,RN is Primary Nurse. cz 06:18 Patient moved to 12 cz 06:46 Patient visited by Sridhar Tejeda PCA. kb5 06:49 Patient visited by Gracia Blanchard LPN. cp1 06:49 Amylase Sent. cp1 06:49 Basic Metabolic Profile Sent. cp1 06:49 Lipase Sent. cp1 06:49 Liver Profile Sent. cp1 06:50 HCG,Serum Qualitative Sent. cp1 06:50 Type & Screen Sent. cp1 06:50 CBC with Diff Sent. cp1 06:52 Patient visited by Padma Seaman RN. mlc 06:53 Inserted saline lock: 20 gauge in right antecubital area and blood collected. The cp1 patient tolerated the procedure well. 06:55 Natalie Boss MD is Attending Physician. ml 06:55 Patient visited by Natalie Boss MD. ml 07:23 Taryn Dockery,RN is Primary Nurse. pml 07:25 The patient / caregiver is instructed regarding the plan of care and ED course. Patient pml has correct armband on for positive identification. Placed in gown. Bed in low position. Call light in reach. Side rails up X2. 07:26 Patient visited by Taryn Dockery,LEXII. pml 07:26 Patient moved to Ultrasound br3 07:29 Primary Nurse role handed off by Padma Seaman RN [id number] 08:09 Patient moved to 12 br3 08:22 [facility] Payment Agreement was scanned into [employer] and attached to record. [id number] 08:25 Assist provider with pelvic exam: Set up pelvic tray. Specimens sent to lab. POC pml passed, sent to pathology, Performed by Natalie Boss MD Patient tolerated well. 08:41 1ST TRIMESTER US Returned. EDMS 08:42 Patient visited by Taryn Dockery,LEXII. pml 09:17 Patient visited by Glendy Abreu PCA. ct3 09:37 Draw Rhogam Sent. pml 09:39 Patient visited by Taryn Dockery RN. pml 10:01 Patient visited by Taryn Dockery,LEXII. pml 10:06 Scott Lemus MD is Referral Physician. ml 10:13 Patient visited by Glendy Abreu PCA. ct3 10:36 Patient visited by Vane Roy. nb2 21:23 T-Sheet-- Draft Copy was scanned into [employer] and attached to record. klr 08/17 09:56 Other: CERTIFICATION INFO was scanned into [employer] and attached to record. gb Administered Medications: 08/16 06:50 Drug: NS 0.9% 1000 ml [sodium chloride 0.9 % intravenous solution] Route: IV; Rate: mlc bolus; Site: right antecubital; 10:40 Follow up: IV Status: Completed infusion; IV Intake: 1000ml pml 08:38 CANCELLED (Other Intervention Used): Tetanus- Diptheria-Acellular Pertussis 0.5 ml IM ml once; Routine booster 10-64yrs, >64 with child contact [facility] 09:37 Drug: -RhoGAM Ultra-Filtered Plus 300 mcg [RhoGAM Ultra-Filtered PLUS 1,500 unit (300 pml mcg) intramuscular syringe (300 mcg)] Route: IM; Site: right gluteus; Intake: 10:40 IV: 1000.00ml; Total: 1000.00ml. pml Order Results: Lab Order: CBC with Diff; SPEC'M 08/16/16 06:47 Test: WHITE BLOOD COUNT; Value: 10.6; Range: 4.0-10.0; Abnormal: Above high normal; Units: K/mm3; Status: F Test: RED BLOOD COUNT; Value: 4.99; Range: 4.00-5.40; Units: M/mm3; Status: F Test: HEMOGLOBIN; Value: 14.0; Range: 12.0-16.0; Units: g/dl; Status: F Test: HEMATOCRIT; Value: 41.2; Range: 36.0-47.0; Units: %; Status: F Test: MEAN CORPUSCULAR VOLUME; Value: 82.6; Range: 80.0-96.0; Units: fl; Status: F Test: MEAN CORPUSCULAR HEMOGLOBIN; Value: 28.0; Range: 27.0-33.0; Units: pg; Status: F Test: MEAN CORPUSCULAR HGB CONC; Value: 33.9; Range: 32.0-36.5; Units: g/dl; Status: F Test: RED CELL DISTRIBUTION WIDTH; Value: 12.7; Range: 11.5-14.5; Units: %; Status: F Test: PLATELET COUNT, AUTOMATED; Value: 459; Range: 150-450; Abnormal: Above high normal; Units: k/mm3; Status: F Test: NEUTROPHILS %; Value: 72.1; Range: 36.0-66.0; Abnormal: Above high normal; Units: %; Status: F Test: LYMPH %; Value: 19.7; Range: 24.0-44.0; Abnormal: Below low normal; Units: %; Status: F Test: MONO %; Value: 5.0; Range: 0.0-5.0; Units: %; Status: F Test: EOS %; Value: 1.3; Range: 0.0-3.0; Units: %; Status: F Test: BASO %; Value: 0.1; Range: 0.0-1.0; Units: %; Status: F Test: LARGE UNSTAINED CELL %; Value: 1.9; Range: 0.0-4.0; Units: %; Status: F Test: NEUTROPHILS #; Value: 7.7; Range: 1.8-7.7; Units: K/mm3; Status: F Test: LYMPH #; Value: 2.1; Range: 1.5-6.5; Units: K/mm3; Status: F Test: MONO #; Value: 0.5; Range: 0.0-0.8; Units: K/mm3; Status: F Test: EOS #; Value: 0.1; Range: 0.0-0.50; Units: K/mm3; Status: F Test: BASO #; Value: 0.0; Range: 0.0-0.2; Units: K/mm3; Status: F Test: LARGE UNSTAINED CELL #; Value: 0.2; Range: 0.0-0.4; Units: K/mm3; Status: F Lab Order: Type & Screen; SPEC 08/16/16 06:47 Test: BLOOD TYPE; Value: A NEG; Status: F Test: AB SCREEN (INDIRECT CAITLIN)GEL; Value: NEGATIVE; Status: F Lab Order: HCG,Serum Qualitative; SPECM 08/16/16 06:47 Test: HCG, SERUM QUALITATIVE; Value: POSITIVE; Range: NEGATIVE; Abnormal: Abnormal; Status: F Lab Order: Amylase; SPEC 08/16/16 06:47 Test: AMYLASE; Value: 42; Range: 25-115; Units: U/L; Status: F Lab Order: Basic Metabolic Profile; SPEC 08/16/16 06:47 Test: GLUCOSE, FASTING; Value: 97; Range: 70-105; Units: MG/DL; Status: F Test: BLOOD UREA NITROGEN; Value: 10; Range: 7-18; Units: MG/DL; Status: F Test: CREATININE FOR GFR; Value: 0.79; Range: 0.55-1.02; Units: MG/DL; Status: F Test: SODIUM LEVEL; Value: 141; Range: 136-145; Units: MEQ/L; Status: F Test: POTASSIUM SERUM; Value: 4.1; Range: 3.5-5.1; Units: MEQ/L; Status: F Test: CHLORIDE LEVEL; Value: 108; Range: 98-107; Abnormal: Above high normal; Units: MEQ/L; Status: F Test: CARBON DIOXIDE LEVEL; Value: 24; Range: 21-32; Units: MEQ/L; Status: F Test: ANION GAP; Value: 9; Range: 8-16; Units: MEQ/L; Status: F Test: CALCIUM LEVEL; Value: 9.1; Range: 8.5-10.1; Units: MG/DL; Status: F Lab Order: Lipase; [facility] 08/16/16 06:47 Test: LIPASE; Value: 80; Range: 73-393; Units: U/L; Status: F Lab Order: Liver Profile; [facility] 08/16/16 06:47 Test: AST/SGOT; Value: 10; Range: 15-37; Abnormal: Below low normal; Units: U/L; Status: F Test: ALT/SGPT; Value: 26; Range: 12-78; Units: U/L; Status: F Test: ALKALINE PHOSPHATASE; Value: 72; Range: 45-117; Units: U/L; Status: F Test: BILIRUBIN,TOTAL; Value: 0.3; Range: 0.2-1.0; Units: MG/DL; Status: F Test: BILIRUBIN,DIRECT; Value: 0.1; Range: 0.0-0.2; Units: MG/DL; Status: F Test: TOTAL PROTEIN; Value: 7.3; Range: 6.4-8.2; Units: GM/DL; Status: F Test: ALBUMIN; Value: 3.7; Range: 3.2-5.2; Units: GM/DL; Status: F Test: ALBUMIN/GLOBULIN RATIO; Value: 1.03; Range: 1.00-1.93; Status: F Lab Order: GC & Chlamydia Amplification; SPEC 08/16/16 10:05 Test: CHLAMYDIA DNA AMPLIFICATION; Value: NEGATIVE; Range: NEGATIVE; Status: F Test: GC DNA AMPLIFICATION; Value: NEGATIVE; Range: NEGATIVE; Status: F Lab Order: Wet Prep; SPEC 08/16/16 10:05 Test: WET PREP; Value: WET PREP RESULT; Status: F Test: WET PREP; Value: MANY RBC; Status: F Test: WET PREP; Value: FEW EPITHELIAL CELLS PRESENT; Status: F Test: WET PREP; Value: FEW LONG RODS PRESENT; Status: F Lab Order: HCG, SERUM QUANTITATIVE; SPEC'M 08/16/16 06:47 Test: HCG, SERUM QUANTITATIVE; Value: 2855; Units: MIU/ML; Status: F Test Note: ; GESTATIONAL AGE APPROXIMATE HCG RANGE (MIU/ML) 0.2-1 WEEK 5-50 1-2 WEEKS 50-500 2-3 WEEKS 100-5,000 3-4 WEEKS 500-10,000 4-5 WEEKS 1,000-50,000 5-6 WEEKS 10,000-100,000 6-8 WEEKS 15,000-200,000 2-3 MONTHS 10,000-100,000 NON FEMALES LESS THAN 3.0 Patient samples may contain human heterophilic antibodies that could react with immunoassays to give falsely elevated or depressed results. This assay has been designed to minimize interference from heterophilic antibodies. Elevated hCG levels have also been associated with trophoblastic disease and nontrophoblastic neoplasms. The possibility of having these diseases should be considered before a diagnosis of is made. This test is not intended for use as a surrogate marker for aiding in the diagnosis or monitoring the treatment of cancer patients. [employer]ens DataParenting methodology. Radiology Order: 1ST TRIMESTER US Test: 1ST TRIMESTER US REASON FOR EXAMINATION: vag bleeding 06/24/16 lmp; Obstetric sonography: First trimester study.; ; History: Vaginal bleeding.; ; Findings: Transabdominal and transvaginal scanning demonstrate an empty uterus; with dimensions of 9.4 x 4.2 x 5.1 cm. No intrauterine gestation is seen.; Endometrium is somewhat heterogeneous measuring 1.1 cm. No focal uterine mass is; seen. No free fluid is noted in the cul-de-sac. There is a 1.8 cm cystic area; in the right ovary consistent with a corpus luteum. Right ovary dimensions of; 3.1 x 2.4 x 2.9 cm. Doppler flow in the right ovary is normal with resistive; index 0.6.; ; The left ovary is normal measuring 2.5 x 2.9 x 2.2 cm. Its Doppler resistive; index 0.9.; ; Impression:; ; Nonspecific findings; no intrauterine gestation seen. No adnexal mass or free; fluid. Findings are consistent with spontaneous AB, early IUP, and ectopic; cannot be excluded. Clinical and possibly sonographic followup; advised.; ; ; Signed by; Best Romero MD 08/16/2016 08:47 A; Outcome: 10:06 Discharge ordered by Provider. 10:38 Discharge Assessment: Patient awake, alert and oriented x 3. No cognitive and/or pml functional deficits noted. Patient verbalized understanding of disposition instructions. patient administered narcotics - no. The following High Risk Discharge criteria are identified: None. Discharged to home ambulatory, with significant other. Condition: good Condition: stable. Discharge instructions given to patient, Instructed on discharge instructions, follow up and referral plans. Demonstrated understanding of instructions, Pt was receptive of discharge instructions/ teaching. Ultrasound Study completed. Property sent home with patient. 10:41 Patient left the ED. pml Signatures: Dispatcher [employer] EDMS Natalie Boss MD MD Ronaldo Dao RN RN cz Princess Saleh, Reg Reg gb Nikhil, Sridhar, CRIME PREVENTION POLICE OFFICER CRIME PREVENTION POLICE OFFICER kb5 Elaine Galo br3 BlanchardGracia khan,PARTY HOST/HOSTESS PARTY HOST/HOSTESS cp1 Lois, Glendy, CRIME PREVENTION POLICE OFFICER CRIME PREVENTION POLICE OFFICER ct3 Taryn Dockery RN RN pml Sullivan, Jennifer, RN RN js13 Padma Seaman,Radha Manzano RN, Reg Reg hs2 Katherine Garza Nicole nb2 Tiffany Morrison dm19 Corrections: (The following items were deleted from the chart) 08:56 06:17 LMP 06/24/2016 cz pml Chart Complete MTDD
--- NOTE | 2016-08-19 13:48 | EDDOCDS ---
Physician Documentation [facility] Name: Gia Florentino Age: 20 yrs Sex: Female : 1995 Arrival Date: 08/16/2016 Time: 05:44 Bed 12 Private MD: Disposition: 08/16/16 10:06 Discharged to Home/Self Care. Impression: Spontaneous . - Condition is Stable. - Discharge Instructions: Miscarriage. - Medication Reconciliation, Local Pharmacy Hours form. - Follow up: Allan, MD Scott; When: 1 - 2 days. - Problem is new. - Symptoms have improved. - Notes: Ispoke to Dr Lemus who would like to see you in follow up. Return if increasing pain, vaginal bleeding or fever. Historical: - Allergies: No known drug Allergies; - Home Meds: 1. Vitamin Oral - PMHx: none; - PSHx: none; - Social history: Smoking status: Patient states was never smoker of tobacco. No barriers to communication noted, The patient speaks fluent Arabic, Speaks appropriately for age. - Family history: Not pertinent. - : The pt / caregiver states he / she is not on anticoagulants. Home medication list is obtained from the patient. - Exposure Risk Screening:: None identified. 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 5 in. (165.10 cm); 06:51 BP 131 / 85 Supine; Pulse 85; mlc 06:51 BP 129 / 80 Sitting; Pulse 91; mlc 06:51 BP 146 / 85 Standing; Pulse 92; mlc 10:12 BP 124 / 76; Pulse 74; Resp 18; Temp 99.0(O); Pulse Ox 99% on R/A; Pain 5/10; ct3 10:36 BP 129 / 73; Pulse 80; Resp 18; Temp 97.7(O); Pulse Ox 96% on R/A; Pain 5/10; nb2 06:17 Body Mass Index 41.60 (113.40 kg, 165.10 cm) cz MDM: 06:35 Orthostatic VS ordered. ml 06:35 IV Saline Lock ordered. mm11 06:35 Undress patient appropriately for examination ordered. mm11 06:35 NS 0.9% 1000 ml IV at bolus once ordered. mm11 06:36 CBC with Diff Ordered. EDMS 06:36 HCG,Serum Qualitative Ordered. EDMS 06:36 Amylase Ordered. EDMS 06:36 Basic Metabolic Profile Ordered. EDMS 06:36 Lipase Ordered. EDMS 06:36 Liver Profile Ordered. EDMS 06:36 Type & Screen Ordered. EDMS 06:37 NOTHING BY MOUTH+DIET ordered. EDMS 07:06 Set up pelvic ordered. ml 07:07 GC & Chlamydia Amplification Ordered. EDMS 07:07 Wet Prep Ordered. EDMS 07:12 HCG, SERUM QUANTITATIVE Ordered. EDMS 07:12 1ST TRIMESTER US Ordered. EDMS 08:00 TRANSVAGINAL US Ordered. EDMS 08:00 DUPLEX SCAN LIMITED (DOPPLER) Ordered. EDMS 08:22 [facility] [place] Agreement was scanned into [employer] and attached to record. dm19 08:22 Financial registration complete. dm19 08:37 -RhoGAM Ultra-Filtered Plus 300 mcg IM once ordered. ml 08:37 Misc. Nursing Order ordered. ml 08:38 Draw Rhogam Ordered. EDMS 08:50 Products of Conception ordered. ml 09:12 Products of Conception complete. ar3 09:13 PATHOLOGY REQUEST FOR SERVICE Ordered. EDMS 10:05 CBC with Diff Reviewed. ml 10:05 HCG,Serum Qualitative Reviewed. ml 10:05 Basic Metabolic Profile Reviewed. ml 10:05 Liver Profile Reviewed. ml 10:05 Type & Screen Reviewed. ml 10:05 Amylase Reviewed. ml 10:05 Lipase Reviewed. ml 10:05 HCG, SERUM QUANTITATIVE Reviewed. ml 10:05 1ST TRIMESTER US Reviewed. ml 21:23 T-Sheet-- Draft Copy was scanned into [employer] and attached to record. klr 08/17 09:56 Other: CERTIFICATION INFO was scanned into [employer] and attached to record. gb Administered Medications: 08/16 06:50 Drug: NS 0.9% 1000 ml [sodium chloride 0.9 % intravenous solution] Route: IV; Rate: mlc bolus; Site: right antecubital; 10:40 Follow up: IV Status: Completed infusion; IV Intake: 1000ml pml 08:38 CANCELLED (Other Intervention Used): Tetanus- Diptheria-Acellular Pertussis 0.5 ml IM ml once; Routine booster 10-64yrs, >64 with child contact [facility] 09:37 Drug: -RhoGAM Ultra-Filtered Plus 300 mcg [RhoGAM Ultra-Filtered PLUS 1,500 unit (300 pml mcg) intramuscular syringe (300 mcg)] Route: IM; Site: right gluteus; Signatures: Dispatcher [employer] EDNatalie Haley MD MD ml Zecher, Calvin, RN RN cz Princess Saleh, Reg Reg gb Lemuel Molina, DO DO mm11 Allyson, Stacy, DEMOLITION SPECIALIST DEMOLITION SPECIALIST ar3 Taryn Dockery RN RN Padma Moses RN RN mlc Redder, Kathie klr McLear, Diane dm19 The chart was reviewed and I authenticate all verbal orders and agree with the evaluation and treatment provided.Corrections: (The following items were deleted from the chart) 06:37 06:36 CBC WITH DIFFERENTIAL+LAB ordered. EDMS EDMS 06:37 06:36 HCG, QUALITATIVE+LAB ordered. EDMS EDMS 06:37 06:37 TYPE & SCREEN+BBK ordered. EDMS EDMS 07:12 07:05 HCG, SERUM QUANTITATIVE+LAB ordered. EDMS EDMS 07:12 07:05 US OBS SINGEL GEST+US ordered. EDMS EDMS 08:38 08:38 Tetanus- Diptheria-Acellular Pertussis 0.5 ml IM once; Routine booster ml 10-64yrs, >64 with child contact [place] [employer] ordered. ml Attachments: 08:22 [facility] Payment Agreement dm19 Chart Complete MTDD
--- NOTE | 2016-08-19 13:48 | EDDOCDS ---
Nurse's Notes [facility] Name: Gia Florentino Age: 20 yrs Sex: Female : 1995 Arrival Date: 08/16/2016 Time: 05:44 Bed 12 Private MD: Diagnosis: Spontaneous Presentation: 08/16 06:12 Presenting complaint: Patient states: she woke up this morning went to void and when cz wiping had clots and now having abdominal cramping. Risk factors: The patient reports no loss of conciousness prior to arrival. This patient has not had a hysterectomy. This patient has not begun menopause. Adult Sepsis Screening: The patient does not have new or worsening altered mentation. Patient's respiratory rate is less than 22. Systolic blood pressure is greater than 100. Patient has a qSOFA score of 0- Negative Sepsis Screen. Suicide/Homicide risk assessment- the patient denies having any suicidal and/or homicidal ideations and does not present with any other emotional, behavioral or mental health complaints. Status: The patient is a dependent. Transition of care: patient was not received from another setting of care. 06:12 Acuity: MATT Level 3 cz 06:12 Method Of Arrival: Walkin/Carried/Asstd cz Triage Assessment: 06:17 General: Appears distressed, uncomfortable. Pain: Location: pelvis Pain currently is 7 cz out of 10 on a pain scale. At worst was 10 out of 10 on a pain scale. HIV screening NA for this visit Offered previously. 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 Vitamin Oral - PMHx: none; - PSHx: none; - Social history: Smoking status: Patient states was never smoker of tobacco. No barriers to communication noted, The patient speaks fluent Ivorian, Speaks appropriately for age. - Family history: Not pertinent. - : The pt / caregiver states he / she is not on anticoagulants. Home medication list is obtained from the patient. - Exposure Risk Screening:: None identified. Screenin:51 Screening information is obtained from the patient. Fall risk: No risks identified. mlc Assistance ADL's: requires no assistance with activities of daily living. Abuse/DV Screen: The patient / caregiver reports he/she is: not in a situation that causes fear, pain or injury. Nutritional screening: No deficits noted. Advance Directives: Currently, there is no health care proxy. home support is adequate. Assessment: 06:51 General: Appears in no apparent distress, Behavior is cooperative, crying. Pain: Denies mlc pain. Neurological: Level of Consciousness is awake, alert, obeys commands, Oriented to person, place, time. Respiratory: Airway is patent Respiratory effort is even, unlabored, Respiratory pattern is regular. GI: Abdomen is non- distended Bowel sounds present X 4 quads. Abd is soft X 4 quads Denies nausea, vomiting. : Reports vaginal bleeding that is with clots. Derm: Skin is normal. 06:52 General: pt reports she is approx 7-8 weeks . . [facility] [place] 07:02 Reassessment: report given to Taryn Dockery RN. [facility] [place] 07:25 General: Appears in no apparent distress, Behavior is appropriate for age, cooperative. pml Pain: Location: pelvis Pain currently is 7 out of 10 on a pain scale. Neurological: Level of Consciousness is awake, alert, Oriented to person, place, time. Cardiovascular: Capillary refill < 3 seconds. Respiratory: Airway is patent Respiratory effort is even, unlabored. GI: Abdomen is non- distended. : Reports vaginal bleeding that is bright red with clots heavy flow. Derm: Skin is pink, warm & dry. 08:40 General: Assist provider with pelvic exam, product of conception noted in vaginal pml fault, collected and prepared as per [facility] policy. support extended to patient and spouse. . 09:38 General: Appears in no apparent distress, Behavior is appropriate for age, cooperative. pml Pain: Denies pain. Neurological: Level of Consciousness is awake, alert, Oriented to person, place, time. Cardiovascular: Capillary refill < 3 seconds. Respiratory: Airway is patent Respiratory effort is even, unlabored. GI: Abdomen is non- distended obese. : Reports vaginal bleeding that is decreased following pelvic exam and passage of POC. Derm: Skin is pink, warm & dry. 10:38 General: Appears in no apparent distress, Behavior is appropriate for age, cooperative. pml Pain: Denies pain. Neurological: Level of Consciousness is awake, alert, Oriented to person, place, time. Cardiovascular: Capillary refill < 3 seconds. Respiratory: Airway is patent Respiratory effort is even, unlabored. GI: Abdomen is non- distended obese. : Reports vaginal bleeding that is bright red light flow. Derm: Skin is pink, warm & dry. Vital Signs: 06:17 BP 147 / 100; Pulse 110; Resp 16; Temp 98.9; Pulse Ox 95% on R/A; Weight 113.4 kg; cz Height 5 ft. 5 in. (165.10 cm); 06:51 BP 131 / 85 Supine; Pulse 85; mlc 06:51 BP 129 / 80 Sitting; Pulse 91; mlc 06:51 BP 146 / 85 Standing; Pulse 92; mlc 10:12 BP 124 / 76; Pulse 74; Resp 18; Temp 99.0(O); Pulse Ox 99% on R/A; Pain 5/10; ct3 10:36 BP 129 / 73; Pulse 80; Resp 18; Temp 97.7(O); Pulse Ox 96% on R/A; Pain 5/10; nb2 06:17 Body Mass Index 41.60 (113.40 kg, 165.10 cm) Vitals: 06:17 Log In Time: August 16, 2016 at 05:46. ED Course: 05:46 Patient visited by Radha Soto Reg. hs2 05:46 Patient moved to Waiting hs2 06:16 Triage Initiated cz 06:18 Padma Seaman,RN is Primary Nurse. cz 06:18 Patient moved to 12 cz 06:46 Patient visited by Sridhar Tejeda PCA. kb5 06:49 Patient visited by Gracia Blanchard LPN. cp1 06:49 Amylase Sent. cp1 06:49 Basic Metabolic Profile Sent. cp1 06:49 Lipase Sent. cp1 06:49 Liver Profile Sent. cp1 06:50 HCG,Serum Qualitative Sent. cp1 06:50 Type & Screen Sent. cp1 06:50 CBC with Diff Sent. cp1 06:52 Patient visited by Padma Seaman RN. mlc 06:53 Inserted saline lock: 20 gauge in right antecubital area and blood collected. The cp1 patient tolerated the procedure well. 06:55 Natalie Boss MD is Attending Physician. ml 06:55 Patient visited by Natalie Boss MD. ml 07:23 Taryn Dockery,RN is Primary Nurse. pml 07:25 The patient / caregiver is instructed regarding the plan of care and ED course. Patient pml has correct armband on for positive identification. Placed in gown. Bed in low position. Call light in reach. Side rails up X2. 07:26 Patient visited by Taryn Dockery,LEXII. pml 07:26 Patient moved to Ultrasound br3 07:29 Primary Nurse role handed off by Padma Seaman RN js13 08:09 Patient moved to 12 br3 08:22 [facility] Payment Agreement was scanned into AskBot and attached to record. dm19 08:25 Assist provider with pelvic exam: Set up pelvic tray. Specimens sent to lab. POC pml passed, sent to pathology, Performed by Natalie Boss MD Patient tolerated well. 08:41 1ST TRIMESTER US Returned. EDMS 08:42 Patient visited by Taryn Dockery,LEXII. pml 09:17 Patient visited by Glendy Abreu PCA. ct3 09:37 Draw Rhogam Sent. pml 09:39 Patient visited by Taryn Dockery RN. pml 10:01 Patient visited by Taryn Dockery,LEXII. pml 10:06 Scott Lemus MD is Referral Physician. ml 10:13 Patient visited by Glendy Abreu PCA. ct3 10:36 Patient visited by Vane Roy. nb2 21:23 T-Sheet-- Draft Copy was scanned into AskBot and attached to record. klr 08/17 09:56 Other: CERTIFICATION INFO was scanned into AskBot and attached to record. gb Administered Medications: 08/16 06:50 Drug: NS 0.9% 1000 ml [sodium chloride 0.9 % intravenous solution] Route: IV; Rate: mlc bolus; Site: right antecubital; 10:40 Follow up: IV Status: Completed infusion; IV Intake: 1000ml pml 08:38 CANCELLED (Other Intervention Used): Tetanus- Diptheria-Acellular Pertussis 0.5 ml IM ml once; Routine booster 10-64yrs, >64 with child contact [employer] 09:37 Drug: -RhoGAM Ultra-Filtered Plus 300 mcg [RhoGAM Ultra-Filtered PLUS 1,500 unit (300 pml mcg) intramuscular syringe (300 mcg)] Route: IM; Site: right gluteus; Intake: 10:40 IV: 1000.00ml; Total: 1000.00ml. pml Order Results: Lab Order: CBC with Diff; SPEC'M 08/16/16 06:47 Test: WHITE BLOOD COUNT; Value: 10.6; Range: 4.0-10.0; Abnormal: Above high normal; Units: K/mm3; Status: F Test: RED BLOOD COUNT; Value: 4.99; Range: 4.00-5.40; Units: M/mm3; Status: F Test: HEMOGLOBIN; Value: 14.0; Range: 12.0-16.0; Units: g/dl; Status: F Test: HEMATOCRIT; Value: 41.2; Range: 36.0-47.0; Units: %; Status: F Test: MEAN CORPUSCULAR VOLUME; Value: 82.6; Range: 80.0-96.0; Units: fl; Status: F Test: MEAN CORPUSCULAR HEMOGLOBIN; Value: 28.0; Range: 27.0-33.0; Units: pg; Status: F Test: MEAN CORPUSCULAR HGB CONC; Value: 33.9; Range: 32.0-36.5; Units: g/dl; Status: F Test: RED CELL DISTRIBUTION WIDTH; Value: 12.7; Range: 11.5-14.5; Units: %; Status: F Test: PLATELET COUNT, AUTOMATED; Value: 459; Range: 150-450; Abnormal: Above high normal; Units: k/mm3; Status: F Test: NEUTROPHILS %; Value: 72.1; Range: 36.0-66.0; Abnormal: Above high normal; Units: %; Status: F Test: LYMPH %; Value: 19.7; Range: 24.0-44.0; Abnormal: Below low normal; Units: %; Status: F Test: MONO %; Value: 5.0; Range: 0.0-5.0; Units: %; Status: F Test: EOS %; Value: 1.3; Range: 0.0-3.0; Units: %; Status: F Test: BASO %; Value: 0.1; Range: 0.0-1.0; Units: %; Status: F Test: LARGE UNSTAINED CELL %; Value: 1.9; Range: 0.0-4.0; Units: %; Status: F Test: NEUTROPHILS #; Value: 7.7; Range: 1.8-7.7; Units: K/mm3; Status: F Test: LYMPH #; Value: 2.1; Range: 1.5-6.5; Units: K/mm3; Status: F Test: MONO #; Value: 0.5; Range: 0.0-0.8; Units: K/mm3; Status: F Test: EOS #; Value: 0.1; Range: 0.0-0.50; Units: K/mm3; Status: F Test: BASO #; Value: 0.0; Range: 0.0-0.2; Units: K/mm3; Status: F Test: LARGE UNSTAINED CELL #; Value: 0.2; Range: 0.0-0.4; Units: K/mm3; Status: F Lab Order: Type & Screen; SPEC 08/16/16 06:47 Test: BLOOD TYPE; Value: A NEG; Status: F Test: AB SCREEN (INDIRECT CAITLIN)GEL; Value: NEGATIVE; Status: F Lab Order: HCG,Serum Qualitative; SPECM 08/16/16 06:47 Test: HCG, SERUM QUALITATIVE; Value: POSITIVE; Range: NEGATIVE; Abnormal: Abnormal; Status: F Lab Order: Amylase; SPEC 08/16/16 06:47 Test: AMYLASE; Value: 42; Range: 25-115; Units: U/L; Status: F Lab Order: Basic Metabolic Profile; SPEC 08/16/16 06:47 Test: GLUCOSE, FASTING; Value: 97; Range: 70-105; Units: MG/DL; Status: F Test: BLOOD UREA NITROGEN; Value: 10; Range: 7-18; Units: MG/DL; Status: F Test: CREATININE FOR GFR; Value: 0.79; Range: 0.55-1.02; Units: MG/DL; Status: F Test: SODIUM LEVEL; Value: 141; Range: 136-145; Units: MEQ/L; Status: F Test: POTASSIUM SERUM; Value: 4.1; Range: 3.5-5.1; Units: MEQ/L; Status: F Test: CHLORIDE LEVEL; Value: 108; Range: 98-107; Abnormal: Above high normal; Units: MEQ/L; Status: F Test: CARBON DIOXIDE LEVEL; Value: 24; Range: 21-32; Units: MEQ/L; Status: F Test: ANION GAP; Value: 9; Range: 8-16; Units: MEQ/L; Status: F Test: CALCIUM LEVEL; Value: 9.1; Range: 8.5-10.1; Units: MG/DL; Status: F Lab Order: Lipase; [facility] 08/16/16 06:47 Test: LIPASE; Value: 80; Range: 73-393; Units: U/L; Status: F Lab Order: Liver Profile; [facility] 08/16/16 06:47 Test: AST/SGOT; Value: 10; Range: 15-37; Abnormal: Below low normal; Units: U/L; Status: F Test: ALT/SGPT; Value: 26; Range: 12-78; Units: U/L; Status: F Test: ALKALINE PHOSPHATASE; Value: 72; Range: 45-117; Units: U/L; Status: F Test: BILIRUBIN,TOTAL; Value: 0.3; Range: 0.2-1.0; Units: MG/DL; Status: F Test: BILIRUBIN,DIRECT; Value: 0.1; Range: 0.0-0.2; Units: MG/DL; Status: F Test: TOTAL PROTEIN; Value: 7.3; Range: 6.4-8.2; Units: GM/DL; Status: F Test: ALBUMIN; Value: 3.7; Range: 3.2-5.2; Units: GM/DL; Status: F Test: ALBUMIN/GLOBULIN RATIO; Value: 1.03; Range: 1.00-1.93; Status: F Lab Order: GC & Chlamydia Amplification; SPEC 08/16/16 10:05 Test: CHLAMYDIA DNA AMPLIFICATION; Value: NEGATIVE; Range: NEGATIVE; Status: F Test: GC DNA AMPLIFICATION; Value: NEGATIVE; Range: NEGATIVE; Status: F Lab Order: Wet Prep; SPEC 08/16/16 10:05 Test: WET PREP; Value: WET PREP RESULT; Status: F Test: WET PREP; Value: MANY RBC; Status: F Test: WET PREP; Value: FEW EPITHELIAL CELLS PRESENT; Status: F Test: WET PREP; Value: FEW LONG RODS PRESENT; Status: F Lab Order: HCG, SERUM QUANTITATIVE; SPEC'M 08/16/16 06:47 Test: HCG, SERUM QUANTITATIVE; Value: 2855; Units: MIU/ML; Status: F Test Note: ; GESTATIONAL AGE APPROXIMATE HCG RANGE (MIU/ML) 0.2-1 WEEK 5-50 1-2 WEEKS 50-500 2-3 WEEKS 100-5,000 3-4 WEEKS 500-10,000 4-5 WEEKS 1,000-50,000 5-6 WEEKS 10,000-100,000 6-8 WEEKS 15,000-200,000 2-3 MONTHS 10,000-100,000 NON FEMALES LESS THAN 3.0 Patient samples may contain human heterophilic antibodies that could react with immunoassays to give falsely elevated or depressed results. This assay has been designed to minimize interference from heterophilic antibodies. Elevated hCG levels have also been associated with trophoblastic disease and nontrophoblastic neoplasms. The possibility of having these diseases should be considered before a diagnosis of is made. This test is not intended for use as a surrogate marker for aiding in the diagnosis or monitoring the treatment of cancer patients. Siemens Bubbl methodology. Radiology Order: 1ST TRIMESTER US Test: 1ST TRIMESTER US REASON FOR EXAMINATION: vag bleeding 06/24/16 lmp; Obstetric sonography: First trimester study.; ; History: Vaginal bleeding.; ; Findings: Transabdominal and transvaginal scanning demonstrate an empty uterus; with dimensions of 9.4 x 4.2 x 5.1 cm. No intrauterine gestation is seen.; Endometrium is somewhat heterogeneous measuring 1.1 cm. No focal uterine mass is; seen. No free fluid is noted in the cul-de-sac. There is a 1.8 cm cystic area; in the right ovary consistent with a corpus luteum. Right ovary dimensions of; 3.1 x 2.4 x 2.9 cm. Doppler flow in the right ovary is normal with resistive; index 0.6.; ; The left ovary is normal measuring 2.5 x 2.9 x 2.2 cm. Its Doppler resistive; index 0.9.; ; Impression:; ; Nonspecific findings; no intrauterine gestation seen. No adnexal mass or free; fluid. Findings are consistent with spontaneous AB, early IUP, and ectopic; cannot be excluded. Clinical and possibly sonographic followup; advised.; ; ; Signed by; Best Romero MD 08/16/2016 08:47 A; Outcome: 10:06 Discharge ordered by Provider. 10:38 Discharge Assessment: Patient awake, alert and oriented x 3. No cognitive and/or pml functional deficits noted. Patient verbalized understanding of disposition instructions. patient administered narcotics - no. The following High Risk Discharge criteria are identified: None. Discharged to home ambulatory, with significant other. Condition: good Condition: stable. Discharge instructions given to patient, Instructed on discharge instructions, follow up and referral plans. Demonstrated understanding of instructions, Pt was receptive of discharge instructions/ teaching. Ultrasound Study completed. Property sent home with patient. 10:41 Patient left the ED. pml Signatures: Dispatcher MedHost EDMS Natalie Boss MD MD Ronaldo Dao RN RN cz Princess Saleh, Reg Reg gb Nikhil, Sridhar, HEAD CAGER HEAD CAGER kb5 Elaine Galo br3 BlanchardGracia khan,HYBRID CORN BREEDER HYBRID CORN BREEDER cp1 Lois, Glendy, HEAD CAGER HEAD CAGER ct3 Taryn Dockery RN RN pml Sullivan, Jennifer, RN RN js13 Padma Seaman,Radha Manzano RN, Reg Reg hs2 Katherine Garza Nicole nb2 Tiffany Morrison dm19 Corrections: (The following items were deleted from the chart) 08:56 06:17 LMP 06/24/2016 cz pml Chart Complete MTDD
--- NOTE | 2016-08-19 13:48 | EDDOCDS ---
Physician Documentation [facility] Name: Gia Florentino Age: 20 yrs Sex: Female : 1995 Arrival Date: 08/16/2016 Time: 05:44 Bed 12 Private MD: Disposition: 08/16/16 10:06 Discharged to Home/Self Care. Impression: Spontaneous . - Condition is Stable. - Discharge Instructions: Miscarriage. - Medication Reconciliation, Local Pharmacy Hours form. - Follow up: Allan, MD Scott; When: 1 - 2 days. - Problem is new. - Symptoms have improved. - Notes: Ispoke to Dr Lemus who would like to see you in follow up. Return if increasing pain, vaginal bleeding or fever. Historical: - Allergies: No known drug Allergies; - Home Meds: 1. Vitamin Oral - PMHx: none; - PSHx: none; - Social history: Smoking status: Patient states was never smoker of tobacco. No barriers to communication noted, The patient speaks fluent Italian, Speaks appropriately for age. - Family history: Not pertinent. - : The pt / caregiver states he / she is not on anticoagulants. Home medication list is obtained from the patient. - Exposure Risk Screening:: None identified. 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 5 in. (165.10 cm); 06:51 BP 131 / 85 Supine; Pulse 85; mlc 06:51 BP 129 / 80 Sitting; Pulse 91; mlc 06:51 BP 146 / 85 Standing; Pulse 92; mlc 10:12 BP 124 / 76; Pulse 74; Resp 18; Temp 99.0(O); Pulse Ox 99% on R/A; Pain 5/10; ct3 10:36 BP 129 / 73; Pulse 80; Resp 18; Temp 97.7(O); Pulse Ox 96% on R/A; Pain 5/10; nb2 06:17 Body Mass Index 41.60 (113.40 kg, 165.10 cm) cz MDM: 06:35 Orthostatic VS ordered. ml 06:35 IV Saline Lock ordered. mm11 06:35 Undress patient appropriately for examination ordered. mm11 06:35 NS 0.9% 1000 ml IV at bolus once ordered. mm11 06:36 CBC with Diff Ordered. EDMS 06:36 HCG,Serum Qualitative Ordered. EDMS 06:36 Amylase Ordered. EDMS 06:36 Basic Metabolic Profile Ordered. EDMS 06:36 Lipase Ordered. EDMS 06:36 Liver Profile Ordered. EDMS 06:36 Type & Screen Ordered. EDMS 06:37 NOTHING BY MOUTH+DIET ordered. EDMS 07:06 Set up pelvic ordered. ml 07:07 GC & Chlamydia Amplification Ordered. EDMS 07:07 Wet Prep Ordered. EDMS 07:12 HCG, SERUM QUANTITATIVE Ordered. EDMS 07:12 1ST TRIMESTER US Ordered. EDMS 08:00 TRANSVAGINAL US Ordered. EDMS 08:00 DUPLEX SCAN LIMITED (DOPPLER) Ordered. EDMS 08:22 PA-[facility] Payment Agreement was scanned into Indotrad[employer] and attached to record. dm19 08:22 Financial registration complete. dm19 08:37 -RhoGAM Ultra-Filtered Plus 300 mcg IM once ordered. ml 08:37 Misc. Nursing Order ordered. ml 08:38 Draw Rhogam Ordered. EDMS 08:50 Products of Conception ordered. ml 09:12 Products of Conception complete. ar3 09:13 PATHOLOGY REQUEST FOR SERVICE Ordered. EDMS 10:05 CBC with Diff Reviewed. ml 10:05 HCG,Serum Qualitative Reviewed. ml 10:05 Basic Metabolic Profile Reviewed. ml 10:05 Liver Profile Reviewed. ml 10:05 Type & Screen Reviewed. ml 10:05 Amylase Reviewed. ml 10:05 Lipase Reviewed. ml 10:05 HCG, SERUM QUANTITATIVE Reviewed. ml 10:05 1ST TRIMESTER US Reviewed. ml 21:23 T-Sheet-- Draft Copy was scanned into [employer] and attached to record. klr 08/17 09:56 Other: CERTIFICATION INFO was scanned into [employer] and attached to record. gb Administered Medications: 08/16 06:50 Drug: NS 0.9% 1000 ml [sodium chloride 0.9 % intravenous solution] Route: IV; Rate: mlc bolus; Site: right antecubital; 10:40 Follow up: IV Status: Completed infusion; IV Intake: 1000ml pml 08:38 CANCELLED (Other Intervention Used): Tetanus- Diptheria-Acellular Pertussis 0.5 ml IM ml once; Routine booster 10-64yrs, >64 with child contact [employer] 09:37 Drug: -RhoGAM Ultra-Filtered Plus 300 mcg [RhoGAM Ultra-Filtered PLUS 1,500 unit (300 pml mcg) intramuscular syringe (300 mcg)] Route: IM; Site: right gluteus; Signatures: Dispatcher [employer] EDNatalie Haley MD MD ml Zecher, Calvin, RN RN cz Princess Saleh, Reg Reg gb Lemuel Molina, DO DO mm11 Allyson, Stacy, HIGH SCHOOL GUIDANCE COUNSELOR HIGH SCHOOL GUIDANCE COUNSELOR ar3 Taryn Dockery RN RN Padma Moses RN RN mlc Redder, Kathie klr McLear, Diane dm19 The chart was reviewed and I authenticate all verbal orders and agree with the evaluation and treatment provided.Corrections: (The following items were deleted from the chart) 06:37 06:36 CBC WITH DIFFERENTIAL+LAB ordered. EDMS EDMS 06:37 06:36 HCG, QUALITATIVE+LAB ordered. EDMS EDMS 06:37 06:37 TYPE & SCREEN+BBK ordered. EDMS EDMS 07:12 07:05 HCG, SERUM QUANTITATIVE+LAB ordered. EDMS EDMS 07:12 07:05 US OBS SINGEL GEST+US ordered. EDMS EDMS 08:38 08:38 Tetanus- Diptheria-Acellular Pertussis 0.5 ml IM once; Routine booster ml 10-64yrs, >64 with child contact [place] [employer] ordered. ml Attachments: 08:22 [facility] Payment Agreement dm19 Chart Complete MTDD
== END 2016-08-16 10:41 | disposition home or self-care (01) ==
LOC: M ED 05:44
DX: O03.9 Complete or unspecified spontaneous abortion without complication (principal); Z3A.01 Less than 8 weeks gestation of pregnancy
CPT/HCPCS: 36415; 76801; 76817; 80048; 80076; 82150; 83690; 84702; 84703; 85025; 86850; 86900; 86901; 87210; 87491; 87591; 88305; 90471; 93976; 96360; 96361; 99285; J2790

== ENCOUNTER 2016-09-05 14:02 | Emergency (ER) | payer OTHER ==
[2016-09-05 14:45] LABS: MICROSCOPIC INDICATED? MAN YES (NO)
[2016-09-05 14:55] LABS: BACTERIA, URINE SMALL AMOUNT; HYALINE CAST, URINE NONE SEEN /lpf (0-1); MICROSCOPIC EXAM PERFORMED; RBC, URINE 40-50 /hpf (0-3); SQUAMOUS EPITHELIAL CELL URINE LARGE AMOUNT /hpf (SMALL AMT); WBC, URINE TNTC /hpf (0-3)
--- NOTE | 2016-09-05 15:47 | EDDOCDS ---
Physician Documentation [facility] Name: Gia Florentino Age: 20 yrs Sex: Female : 1995 Arrival Date: 09/05/2016 Time: 14:02 Bed TR1 Private MD: Raven [facility] Disposition: 09/05/16 15:37 Discharged to Home/Self Care. Impression: Urinary tract infection, site not specified, Dysuria. - Condition is Stable. - Discharge Instructions: Dysuria, Urinary Tract Infection. - Prescriptions for Pyridium 200 mg Oral Tablet - take 1 tablet by ORAL route every 8 hours for 2 days; 6 tablet. Macrobid 100 mg Oral Capsule - take 100 milligram by ORAL route every 12 hours for 10 days; 20 capsule. - Medication Reconciliation, Local Pharmacy Hours form. - Follow up: Emergency Department; When: As needed; Reason: Worsening of conditions. Follow up: Private Physician; When: 2 - 3 days; Reason: Wound/Symptom Recheck, Recheck today's complaints, Continuance of care. - Problem is new. - Symptoms are unchanged. Historical: - Allergies: no known allergies; - Home Meds: 1. none - PMHx: none; - PSHx: none; - Social history: Smoking status: Patient uses tobacco products, current some day smoker. No barriers to communication noted, The patient speaks fluent Thai, Speaks appropriately for age. - Family history: Not pertinent. - : The pt / caregiver states he / she is not on anticoagulants. Home medication list is obtained from the patient. - Exposure Risk Screening:: None identified. 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 6 in. (167.64 cm) (M); Pain 3/10; 15:41 BP 131 / 85; Pulse 86; Resp 18; Temp 97.7(T); Pulse Ox 97% on R/A; jb5 14:05 Body Mass Index 40.35 (113.40 kg, 167.64 cm) gr2 MDM: 14:23 UCG by Nursing ordered. dt4 14:25 Urine Culture Ordered. EDMS 14:38 URINALYSIS MANUAL Ordered. EDMS Point of Care Testing: Urine : 14:35 hCG Reading: Negative; Control Reading: Positive; srm Ranges: Signatures: Dispatcher [employer] EDTiffany Girard PA-C PA-C dt4 Sarita Tariq,RN RN js15 Vicky Sepulveda,RN RN kc3 The chart was reviewed and I authenticate all verbal orders and agree with the evaluation and treatment provided.Corrections: (The following items were deleted from the chart) 14:38 14:25 URINALYSIS+LAB ordered. EDMS EDMS MTDD
--- NOTE | 2016-09-05 15:47 | EDDOCDS ---
Nurse's Notes [facility] Name: Gia Florentino Age: 20 yrs Sex: Female : 1995 Arrival Date: 09/05/2016 Time: 14:02 Bed TR1 Private MD: NAIF Carbajal Diagnosis: Urinary tract infection, site not specified;Dysuria Presentation: 09/05 14:20 Presenting complaint: Patient states: burning, hematuria, and urinary frequency since kc3 yesterday with no relief with Simon. Adult Sepsis Screening: The patient does not have new or worsening altered mentation. Patient's respiratory rate is less than 22. Systolic blood pressure is greater than 100. Patient has a qSOFA score of 0- Negative Sepsis Screen. Suicide/Homicide risk assessment- the patient denies having any suicidal and/or homicidal ideations and does not present with any other emotional, behavioral or mental health complaints. Status: The patient is a dependent. Transition of care: patient was not received from another setting of care. 14:20 Acuity: MATT Level 4 kc3 14:20 Method Of Arrival: Walkin/Carried/Asstd kc3 Triage Assessment: 14:22 General: Appears in no apparent distress, comfortable. Pain: Location: pelvis Pain kc3 currently is 4 out of 10 on a pain scale. HIV screening NA for this visit Offered previously. Respiratory: Respiratory effort is even, unlabored. : Reports burning with urination hematuria urinary frequency. Derm: Skin is pink, warm & dry. 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 none - PMHx: none; - PSHx: none; - Social history: Smoking status: Patient uses tobacco products, current some day smoker. No barriers to communication noted, The patient speaks fluent Italian, Speaks appropriately for age. - Family history: Not pertinent. - : The pt / caregiver states he / she is not on anticoagulants. Home medication list is obtained from the patient. - Exposure Risk Screening:: None identified. Screenin:44 Screening information is obtained from the patient. Fall risk: No risks identified. js15 Assistance ADL's: requires no assistance with activities of daily living. Abuse/DV Screen: The patient / caregiver reports he/she is: not in a situation that causes fear, pain or injury. Nutritional screening: No deficits noted. Advance Directives: There is no active DNR order. home support is adequate. Assessment: 15:44 General: Appears in no apparent distress, Behavior is appropriate for age, cooperative. js15 Neurological: Level of Consciousness is awake, alert, obeys commands, Oriented to person, place, time. Respiratory: Airway is patent Respiratory effort is even, unlabored, Respiratory pattern is regular, symmetrical. Derm: Skin is pink, warm & dry. Vital Signs: 14:05 BP 153 / 90; Pulse 96; Resp 18 S; Temp 96.1(O); Pulse Ox 97% on R/A; Weight 113.4 kg gr2 (R); Height 5 ft. 6 in. (167.64 cm) (M); Pain 3/10; 15:41 BP 131 / 85; Pulse 86; Resp 18; Temp 97.7(T); Pulse Ox 97% on R/A; jb5 14:05 Body Mass Index 40.35 (113.40 kg, 167.64 cm) gr2 Vitals: 14:05 Log In Time: September 05, 2016 at 14:05. gr2 ED Course: 14:04 Patient visited by Mala Galo. gr2 14:04 Raven [facility] is Private Physician. gr2 14:04 Patient moved to Waiting gr2 14:07 Patient visited by Mala Galo. gr2 14:07 Patient moved to Pre RCE gr2 14:21 Triage Initiated kc3 14:35 Urine Culture Sent. srm 15:23 Patient moved to Triage 1 jo3 15:26 Tiffany Palomino PA-C is PHCP. dt4 15:26 Jojo Monroe MD is Attending Physician. dt4 15:26 Patient visited by Tiffany Palomino PA-C. dt4 15:41 Patient visited by Alejandra Guevara PCA. jb5 15:44 The patient / caregiver is instructed regarding the plan of care and ED course. js15 15:44 No IV's were initiated during this patient's visit. No procedures done that require js15 assistance. 15:45 Patient moved to TR1 srm Point of Care Testing: Urine : 14:35 hCG Reading: Negative; Control Reading: Positive; srm Ranges: Order Results: Lab Order: URINALYSIS MANUAL; SPEC'M 09/05/16 14:30 Test: APPEARANCE, URINE MANUAL; Value: HAZY; Range: CLEAR; Abnormal: Above high normal; Status: F Test: COLOR, URINE MANUAL; Value: ORANGE; Range: YELLOW; Abnormal: Above high normal; Status: F Test: PH,URINE MAN; Value: OBSCURED; Range: 5.0 - 9.0; Abnormal: Above high normal; Units: UNITS; Status: F Test: SPECIFIC GRAVITY,URINE MANUAL; Value: 1.019; Range: 1.002-1.035; Status: F Test: PROTEIN, URINE MANUAL; Value: OBSCURED; Range: NEGATIVE; Abnormal: Above high normal; Units: mg/dL; Status: F Test: GLUCOSE, URINE (UA) MANUAL; Value: OBSCURED; Range: NEGATIVE; Abnormal: Above high normal; Units: mg/dL; Status: F Test: KETONE, URINE MANUAL; Value: OBSCURED; Range: NEGATIVE; Abnormal: Above high normal; Units: mg/dL; Status: F Test: UROBILINOGEN, URINE MANUAL; Value: OBSCURED; Range: NORMAL; Abnormal: Above high normal; Units: mg/dl; Status: F Test: BILIRUBIN, URINE MANUAL; Value: OBSCURED; Range: NEGATIVE; Abnormal: Above high normal; Status: F Test: NITRITE, URINE MANUAL; Value: OBSCURED; Range: NEGATIVE; Abnormal: Above high normal; Status: F Test: LEUKOCYTE ESTERASE, URINE MAN; Value: OBSCURED; Range: NEGATIVE; Abnormal: Above high normal; Status: F Test: BLOOD URINE MANUAL; Value: OBSCURED; Range: NEGATIVE; Abnormal: Above high normal; Status: F Lab Order: MICROSCOPIC, URINE; SPEC'M 09/05/16 14:30 Test: WBC, URINE; Value: TNTC; Range: 0-3; Abnormal: Above high normal; Units: /hpf; Status: F Test: RBC, URINE; Value: 40-50; Range: 0-3; Units: /hpf; Status: F Test: SQUAMOUS EPITHELIAL CELL URINE; Value: LARGE AMOUNT; Range: SMALL AMT; Abnormal: Above high normal; Units: /hpf; Status: F Test: BACTERIA, URINE; Value: SMALL AMOUNT; Range: NONE; Abnormal: Above high normal; Status: F Test: HYALINE CAST, URINE; Value: NONE SEEN; Range: 0-1; Units: /lpf; Status: F Test: MICROSCOPIC EXAM; Status: I Test: MUCUS, URINE; Value: MOD AMOUNT; Range: NEGATIVE; Abnormal: Above high normal; Status: F Test: MICROSCOPIC EXAM; Value: PERFORMED; Status: F Outcome: 15:37 Discharge ordered by Provider. dt4 15:44 Discharge Assessment: Patient awake, alert and oriented x 3. No cognitive and/or js15 functional deficits noted. Patient verbalized understanding of disposition instructions. patient administered narcotics - no. The following High Risk Discharge criteria are identified: None. Discharged to home ambulatory. Condition: unchanged. Discharge instructions given to patient, Instructed on discharge instructions, follow up and referral plans. medication usage, Demonstrated understanding of instructions, medications, Pt was receptive of discharge instructions/ teaching. Prescriptions given X 2. No special radiology studies were completed. Property sent home with patient. 15:45 Patient left the ED. js15 Signatures: Zahida Ramirez, RN RN [facility] Alejandra Guevara, HUMANITIES DEPARTMENT CHAIR HUMANITIES DEPARTMENT CHAIR jb5 Mitra Guerra RN RN jo3 Mala Galo gr2 Tiffany Palomino, PA-Klaus PA-C dt4 Sarita TariqRN LEXII js15 Vicky Sepulveda,LEXII RN kc3 Corrections: (The following items were deleted from the chart) 14:38 14:35 URINALYSIS+LAB sent. [facility] EDCO MTDD
--- NOTE | 2016-09-07 16:47 | EDDOCDS ---
Physician Documentation [facility] Name: Gia Florentino Age: 20 yrs Sex: Female : 1995 Arrival Date: 09/05/2016 Time: 14:02 Bed TR1 Private MD: Raven [facility] Disposition: 09/05/16 15:37 Discharged to Home/Self Care. Impression: Urinary tract infection, site not specified, Dysuria. - Condition is Stable. - Discharge Instructions: Dysuria, Urinary Tract Infection. - Prescriptions for Pyridium 200 mg Oral Tablet - take 1 tablet by ORAL route every 8 hours for 2 days; 6 tablet. Macrobid 100 mg Oral Capsule - take 100 milligram by ORAL route every 12 hours for 10 days; 20 capsule. - Medication Reconciliation, Local Pharmacy Hours form. - Follow up: Emergency Department; When: As needed; Reason: Worsening of conditions. Follow up: Private Physician; When: 2 - 3 days; Reason: Wound/Symptom Recheck, Recheck today's complaints, Continuance of care. - Problem is new. - Symptoms are unchanged. Historical: - Allergies: no known allergies; - Home Meds: 1. none - PMHx: none; - PSHx: none; - Social history: Smoking status: Patient uses tobacco products, current some day smoker. No barriers to communication noted, The patient speaks fluent Azeri, Speaks appropriately for age. - Family history: Not pertinent. - : The pt / caregiver states he / she is not on anticoagulants. Home medication list is obtained from the patient. - Exposure Risk Screening:: None identified. 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 6 in. (167.64 cm) (M); Pain 3/10; 15:41 BP 131 / 85; Pulse 86; Resp 18; Temp 97.7(T); Pulse Ox 97% on R/A; jb5 14:05 Body Mass Index 40.35 (113.40 kg, 167.64 cm) gr2 MDM: 14:23 UCG by Nursing ordered. dt4 14:25 Urine Culture Ordered. EDMS 14:38 URINALYSIS MANUAL Ordered. EDMS 09/06 08:02 T-Sheet-- Draft Copy was scanned into [employer] and attached to record. [facility] Point of Care Testing: Urine : 09/05 14:35 hCG Reading: Negative; Control Reading: Positive; srm Ranges: Signatures: Dispatcher [employer] EDIL Tiffany Palomino PA-C PA-C dt4 Sarita TariqRN RN js15 Vicky Sepulveda,RN RN kc3 Jojo Burris [facility] The chart was reviewed and I authenticate all verbal orders and agree with the evaluation and treatment provided.Corrections: (The following items were deleted from the chart) 14:38 14:25 URINALYSIS+LAB ordered. EDIL EDMS Attachments: 09/06 08:02 T-Sheet-- Draft Copy [facility] Chart Complete MTDD
--- NOTE | 2016-09-07 16:47 | EDDOCDS ---
Physician Documentation [facility] Name: Gia Florentino Age: 20 yrs Sex: Female : 1995 Arrival Date: 09/05/2016 Time: 14:02 Bed TR1 Private MD: Raven [facility] Disposition: 09/05/16 15:37 Discharged to Home/Self Care. Impression: Urinary tract infection, site not specified, Dysuria. - Condition is Stable. - Discharge Instructions: Dysuria, Urinary Tract Infection. - Prescriptions for Pyridium 200 mg Oral Tablet - take 1 tablet by ORAL route every 8 hours for 2 days; 6 tablet. Macrobid 100 mg Oral Capsule - take 100 milligram by ORAL route every 12 hours for 10 days; 20 capsule. - Medication Reconciliation, Local Pharmacy Hours form. - Follow up: Emergency Department; When: As needed; Reason: Worsening of conditions. Follow up: Private Physician; When: 2 - 3 days; Reason: Wound/Symptom Recheck, Recheck today's complaints, Continuance of care. - Problem is new. - Symptoms are unchanged. Historical: - Allergies: no known allergies; - Home Meds: 1. none - PMHx: none; - PSHx: none; - Social history: Smoking status: Patient uses tobacco products, current some day smoker. No barriers to communication noted, The patient speaks fluent Swedish, Speaks appropriately for age. - Family history: Not pertinent. - : The pt / caregiver states he / she is not on anticoagulants. Home medication list is obtained from the patient. - Exposure Risk Screening:: None identified. 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 6 in. (167.64 cm) (M); Pain 3/10; 15:41 BP 131 / 85; Pulse 86; Resp 18; Temp 97.7(T); Pulse Ox 97% on R/A; jb5 14:05 Body Mass Index 40.35 (113.40 kg, 167.64 cm) gr2 MDM: 14:23 UCG by Nursing ordered. dt4 14:25 Urine Culture Ordered. EDMS 14:38 URINALYSIS MANUAL Ordered. EDMS 09/06 08:02 T-Sheet-- Draft Copy was scanned into [employer] and attached to record. [facility] Point of Care Testing: Urine : 09/05 14:35 hCG Reading: Negative; Control Reading: Positive; srm Ranges: Signatures: Dispatcher [employer] EDDC Tiffany Palomino PA-C PA-C dt4 Sarita TariqRN RN js15 Vicky Sepulveda,RN RN kc3 Jojo Burris [facility] The chart was reviewed and I authenticate all verbal orders and agree with the evaluation and treatment provided.Corrections: (The following items were deleted from the chart) 14:38 14:25 URINALYSIS+LAB ordered. EDDC EDMS Attachments: 09/06 08:02 T-Sheet-- Draft Copy [facility] Chart Complete MTDD
--- NOTE | 2016-09-07 16:48 | EDDOCDS ---
Nurse's Notes [facility] Name: Gia Florentino Age: 20 yrs Sex: Female : 1995 Arrival Date: 09/05/2016 Time: 14:02 Bed TR1 Private MD: NAIF Carbajal Diagnosis: Urinary tract infection, site not specified;Dysuria Presentation: 09/05 14:20 Presenting complaint: Patient states: burning, hematuria, and urinary frequency since kc3 yesterday with no relief with Simon. Adult Sepsis Screening: The patient does not have new or worsening altered mentation. Patient's respiratory rate is less than 22. Systolic blood pressure is greater than 100. Patient has a qSOFA score of 0- Negative Sepsis Screen. Suicide/Homicide risk assessment- the patient denies having any suicidal and/or homicidal ideations and does not present with any other emotional, behavioral or mental health complaints. Status: The patient is a dependent. Transition of care: patient was not received from another setting of care. 14:20 Acuity: MATT Level 4 kc3 14:20 Method Of Arrival: Walkin/Carried/Asstd kc3 Triage Assessment: 14:22 General: Appears in no apparent distress, comfortable. Pain: Location: pelvis Pain kc3 currently is 4 out of 10 on a pain scale. HIV screening NA for this visit Offered previously. Respiratory: Respiratory effort is even, unlabored. : Reports burning with urination hematuria urinary frequency. Derm: Skin is pink, warm & dry. 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 none - PMHx: none; - PSHx: none; - Social history: Smoking status: Patient uses tobacco products, current some day smoker. No barriers to communication noted, The patient speaks fluent Kinyarwanda, Speaks appropriately for age. - Family history: Not pertinent. - : The pt / caregiver states he / she is not on anticoagulants. Home medication list is obtained from the patient. - Exposure Risk Screening:: None identified. Screenin:44 Screening information is obtained from the patient. Fall risk: No risks identified. js15 Assistance ADL's: requires no assistance with activities of daily living. Abuse/DV Screen: The patient / caregiver reports he/she is: not in a situation that causes fear, pain or injury. Nutritional screening: No deficits noted. Advance Directives: There is no active DNR order. home support is adequate. Assessment: 15:44 General: Appears in no apparent distress, Behavior is appropriate for age, cooperative. js15 Neurological: Level of Consciousness is awake, alert, obeys commands, Oriented to person, place, time. Respiratory: Airway is patent Respiratory effort is even, unlabored, Respiratory pattern is regular, symmetrical. Derm: Skin is pink, warm & dry. Vital Signs: 14:05 BP 153 / 90; Pulse 96; Resp 18 S; Temp 96.1(O); Pulse Ox 97% on R/A; Weight 113.4 kg gr2 (R); Height 5 ft. 6 in. (167.64 cm) (M); Pain 3/10; 15:41 BP 131 / 85; Pulse 86; Resp 18; Temp 97.7(T); Pulse Ox 97% on R/A; jb5 14:05 Body Mass Index 40.35 (113.40 kg, 167.64 cm) gr2 Vitals: 14:05 Log In Time: September 05, 2016 at 14:05. gr2 ED Course: 14:04 Patient visited by Mala Galo. gr2 14:04 [place] [facility] [place] Private Physician. gr2 14:04 Patient moved to Waiting gr2 14:07 Patient visited by Mala Galo. gr2 14:07 Patient moved to Pre RCE gr2 14:21 Triage Initiated kc3 14:35 Urine Culture Sent. srm 15:23 Patient moved to Triage 1 jo3 15:26 Tiffany Palomino PA-C is PHCP. dt4 15:26 Jojo Monroe MD is Attending Physician. dt4 15:26 Patient visited by Tiffany Palomino PA-C. dt4 15:41 Patient visited by Alejandra Guevara PCA. jb5 15:44 The patient / caregiver is instructed regarding the plan of care and ED course. js15 15:44 No IV's were initiated during this patient's visit. No procedures done that require js15 assistance. 15:45 Patient moved to TR1 [facility] 09/06 08:02 T-Sheet-- Draft Copy was scanned into [employer] and attached to record. [facility] Point of Care Testing: Urine : 09/05 14:35 hCG Reading: Negative; Control Reading: Positive; srm Ranges: Order Results: Lab Order: Urine Culture; SPEC'M 09/05/16 14:30 Test: URINE CULTURE; Value: <EXTERNAL COMMENT eCWMed> FULL REPORT IN LAB NOTES (eCW and Medent).; Status: F Test: URINE CULTURE; Value: URINE CULTURE RESULT NO GROWTH CLINICAL SIGNIFICANCE 1 ORGANISM; Status: F Lab Order: URINALYSIS MANUAL; SPEC'M 09/05/16 14:30 Test: APPEARANCE, URINE MANUAL; Value: HAZY; Range: CLEAR; Abnormal: Above high normal; Status: F Test: COLOR, URINE MANUAL; Value: ORANGE; Range: YELLOW; Abnormal: Above high normal; Status: F Test: PH,URINE MAN; Value: OBSCURED; Range: 5.0 - 9.0; Abnormal: Above high normal; Units: UNITS; Status: F Test: SPECIFIC GRAVITY,URINE MANUAL; Value: 1.019; Range: 1.002-1.035; Status: F Test: PROTEIN, URINE MANUAL; Value: OBSCURED; Range: NEGATIVE; Abnormal: Above high normal; Units: mg/dL; Status: F Test: GLUCOSE, URINE (UA) MANUAL; Value: OBSCURED; Range: NEGATIVE; Abnormal: Above high normal; Units: mg/dL; Status: F Test: KETONE, URINE MANUAL; Value: OBSCURED; Range: NEGATIVE; Abnormal: Above high normal; Units: mg/dL; Status: F Test: UROBILINOGEN, URINE MANUAL; Value: OBSCURED; Range: NORMAL; Abnormal: Above high normal; Units: mg/dl; Status: F Test: BILIRUBIN, URINE MANUAL; Value: OBSCURED; Range: NEGATIVE; Abnormal: Above high normal; Status: F Test: NITRITE, URINE MANUAL; Value: OBSCURED; Range: NEGATIVE; Abnormal: Above high normal; Status: F Test: LEUKOCYTE ESTERASE, URINE MAN; Value: OBSCURED; Range: NEGATIVE; Abnormal: Above high normal; Status: F Test: BLOOD URINE MANUAL; Value: OBSCURED; Range: NEGATIVE; Abnormal: Above high normal; Status: F Lab Order: MICROSCOPIC, URINE; SPEC'M 09/05/16 14:30 Test: WBC, URINE; Value: TNTC; Range: 0-3; Abnormal: Above high normal; Units: /hpf; Status: F Test: RBC, URINE; Value: 40-50; Range: 0-3; Units: /hpf; Status: F Test: SQUAMOUS EPITHELIAL CELL URINE; Value: LARGE AMOUNT; Range: SMALL AMT; Abnormal: Above high normal; Units: /hpf; Status: F Test: BACTERIA, URINE; Value: SMALL AMOUNT; Range: NONE; Abnormal: Above high normal; Status: F Test: HYALINE CAST, URINE; Value: NONE SEEN; Range: 0-1; Units: /lpf; Status: F Test: MICROSCOPIC EXAM; Status: I Test: MUCUS, URINE; Value: MOD AMOUNT; Range: NEGATIVE; Abnormal: Above high normal; Status: F Test: MICROSCOPIC EXAM; Value: PERFORMED; Status: F Outcome: 15:37 Discharge ordered by Provider. dt4 15:44 Discharge Assessment: Patient awake, alert and oriented x 3. No cognitive and/or js15 functional deficits noted. Patient verbalized understanding of disposition instructions. patient administered narcotics - no. The following High Risk Discharge criteria are identified: None. Discharged to home ambulatory. Condition: unchanged. Discharge instructions given to patient, Instructed on discharge instructions, follow up and referral plans. medication usage, Demonstrated understanding of instructions, medications, Pt was receptive of discharge instructions/ teaching. Prescriptions given X 2. No special radiology studies were completed. Property sent home with patient. 15:45 Patient left the ED. js15 Signatures: Zahida Ramirez, RN RN [facility] Alejandra Guevara, COLETTE TAX ASSISTANT jb5 Mitra Guerra RN RN jo3 Raymond, Gainslee gr2 Tiffany Palomino, PA-C PA-C dt4 Sarita Tariq RN RN js15 Vicky Sepulveda RN RN kc3 Jojo Burris Corrections: (The following items were deleted from the chart) 14:38 14:35 URINALYSIS+LAB sent. [facility] EDMS Chart Complete MTDD
== END 2016-09-05 15:45 | disposition home or self-care (01) ==
LOC: M ED 14:02
DX: R31.9 Hematuria, unspecified (principal); N39.0 Urinary tract infection, site not specified; Z72.0 Tobacco use

== ENCOUNTER 2017-05-25 19:37 | Emergency (ER) | payer OTHER ==
[~2017-05-25] VITALS: Ht 167.6 cm; Wt 117.4 kg
[2017-05-25] MEDS ORDERED: PRENTAB44 PO (20:14)
[2017-05-25 21:27] LABS: BASO % 0.1 % (0.0-1.0); EOS # 0.1 10^3/uL (0.0-0.50); EOS % 0.6 % (0.0-3.0); IMMATURE GRANULOCYTE % 0.4 % (0-0); LYMPH # 2.7 10^3/uL (1.5-6.5); LYMPH % 23.7 % (24.0-44.0); MEAN CORPUSCULAR HEMOGLOBIN 28.9 pg (27.0-33.0); MEAN CORPUSCULAR HGB CONC 34.2 g/dl (32.0-36.5); MEAN CORPUSCULAR VOLUME 84.4 fl (80.0-96.0); MONO # 1.1 10^3/uL (0.0-0.8); MONO % 9.6 % (0.0-5.0); NEUTROPHILS # 7.5 10^3/uL (1.8-7.7); NEUTROPHILS % 65.6 % (36.0-66.0); PLATELET COUNT, AUTOMATED 471 10^3/uL (150-450); RED CELL DISTRIBUTION WIDTH 12.9 % (11.5-14.5); WHITE BLOOD COUNT 11.4 10^3/uL (4.0-10.0)
[2017-05-25 22:06] LABS: ANION GAP 9 MEQ/L (8-16); BLOOD UREA NITROGEN 7 MG/DL (7-18); CALCIUM LEVEL 8.4 MG/DL (8.5-10.1); CARBON DIOXIDE LEVEL 24 MEQ/L (21-32); CHLORIDE LEVEL 107 MEQ/L (98-107); GLOMERULAR FILTRATION RATE > 60.0 (>60); GLUCOSE, FASTING 87 MG/DL (70-105); HCG, SERUM QUANTITATIVE 1313 MIU/ML; POTASSIUM SERUM 3.5 MEQ/L (3.5-5.1); SODIUM LEVEL 140 MEQ/L (136-145)
[2017-05-25] MEDS ORDERED: RHOGAM 300 MCG (1500 IU) INJ (J2790) IM SCH (22:30)
--- NOTE | 2017-05-25 23:00 | REPUSA ---
Clinical history: vaginal bleeding. Findings: Real-time transabdominal and transvaginal ultrasound images of the pelvis were obtained. An anteverted uterus is noted, measuring 7.7 x 3.6 x 4.4 cm. The uterus demonstrates normal echotexture and echogenicity. There is a single intrauterine gestational sac with a mean sac diameter of 3.9 cm. No pole or yolk sac is identified. There is no evidence of a subchorionic hemorrhage. The righ t ovary measures 3.5 x 2.6 x 3.4 cm. There is a simple right ovarian cyst measuring 1.7 x 1.3 x 1.6 c m. The left ovary measures 3.5 x 2.6 x 1.9 cm. Normal arterial blood flow seem bilaterally. There is no evidence of free fluid. Impression: 1. Single intrauterine gestation, without a pole or yolk sac identified. This is likely because of the early age of the . Follow-up with serial serum beta hCG levels is recommended for fu rther evaluation. 2. Right ovarian corpus luteum cyst.
[2017-05-26 00:55] VITALS: BP 129/90
== END 2017-05-26 00:57 | disposition home or self-care (01) ==
LOC: M ED 19:37
DX: O20.0 Threatened abortion (principal); Z3A.01 Less than 8 weeks gestation of pregnancy
CPT/HCPCS: 76801; 76817; 80048; 81001; 84702; 85025; 86850; 86900; 86901; 87086; 87210; 87491; 87591; 93976; 96372; 99282; J2790

== ENCOUNTER 2017-07-03 11:42 | Day surgery (SDC) | payer OTHER ==
[~2017-07-03] VITALS: Ht 167.6 cm; Wt 117.7 kg
[~2017-07-03 11:42] MED LIST: PRENTAB44 PO
[2017-07-03 12:29] LABS: MEAN CORPUSCULAR HEMOGLOBIN 28.7 pg (27.0-33.0); MEAN CORPUSCULAR HGB CONC 33.9 g/dl (32.0-36.5); MEAN CORPUSCULAR VOLUME 84.7 fl (80.0-96.0); PLATELET COUNT, AUTOMATED 394 10^3/uL (150-450); RED CELL DISTRIBUTION WIDTH 12.7 % (11.5-14.5); WHITE BLOOD COUNT 9.8 10^3/uL (4.0-10.0)
[2017-07-03] MEDS ORDERED: MIDAZOLAM INJ 2 MG/2 ML VIAL (J2250) As Ordered ONE (13:56)
[2017-07-03] MEDS ORDERED: fentaNYL 100 MCG/2 ML INJECTION (J3010) As Ordered ONE (13:57)
[2017-07-03] MEDS ORDERED: LIDOCAINE 2% INJ 100 MG/5 ML SDV (FOR ANES.) As Ordered ONE (13:59)
[2017-07-03] MEDS ORDERED: PROPOFOL 200 MG/20 ML VIAL As Ordered ONE (13:59)
[2017-07-03] MEDS ORDERED: DOXYCYCLINE HYCLATE 100 MG TAB PO ONE ×2 (14:00→16:00)
--- NOTE | 2017-07-03 14:35 | IPNPDOC ---
Text Note Date of Service The patient was seen on 07/03/17. NOTE ER Consult/H&P Gia is a 21yo [id number] with known missed presenting to ER today with episode of spotting. LMP 11 Apr 2017 (11w6d today by LMP). She was seen in ER once previously and three times in clinic. She had appropriately developing with pole noted measuring 7wk gestation with cardiac activity, but on repeat visits there was absent cardiac activity. She was counseled on management and undecided previously. Today she endorses strong desire for definitive surgical management. She has cramping. No passage of tissue. No fevers/chills/nausea/vomiting. History: Ob: : SAB Aug 2016 with no intervention G2: current Parimutuel Clerk: no abnormal papsmears, no STDs PMhx: obesity (BMI 43) Surgeries: none Meds: none Allergies: NKDA Social: 1-2 cig/day, rare ETOH, no illicit drugs Family hx: non-contributory Vitals: first bp elevated but then normotensive, normocardic, afebrile General: WDWN, obese F resting comfortably Cardiac: S1S2 present, no murmur Lungs: CTAB Abdomen: soft, NTTP TVUS performed in clinic by Dr Rodrigues on Jun: GS/YS/FP with NO FCA CRL measuring 7+5, observed for >30 sec. Normal ovaries bilaterally. No free fluid. Labs: MBT A negative ab screen positive hc Nov: 20k 17 Nov: 63k 15 Nov: 77k 19 Oct: 70k Assessment: Gia is a 21yo [id number] with known missed at 11w6d by lmp but absent FCA noted on two prior occasions in clinic with falling hcg, FP measured consistent with 7w5d. Gia desires definitive management with D&C after extensive counseling on two prior occasions and again today in the ER. Vitals wnl, exam benign. PMhx only significant for obesity. She last ate last night. Plan: -Suction D&C -100mg PO doxycycline prior to procedure then 200mg PO doxycycline after -Rhogam (she received a dose in the ER 6 weeks ago, but will re-dose given risk of exposure with D&C) -Has motrin at home for post-op -Instructed to make follow-up with me in clinic in 2 weeks -She would like to discuss contraception again at post-op visit -OR team and anesthesia aware of plan. Will proceed when able. Dr. Belle Fleming MD ElizabethSuzanna KRISHNA,Robert, I+O VSRobert, I+O Laboratory Tests 07/03/17 12:23 Red Blood Count 4.77, Mean Corpuscular Volume 84.7, Mean Corpuscular Hemoglobin 28.7, Mean Corpuscular Hemoglobin Concent 33.9, Red Cell Distribution Width 12.7 Vital Signs Date Time Temp Pulse Resp B/P (MAP) Pulse Ox O2 Delivery O2 Flow Rate FiO2 07/03/17 14:19 99.6 89 18 133/82 (99) 100 Room Air Belle Fleming MD Jul 03, 2017 14:35
[2017-07-03] MEDS ORDERED: SILVER NITRATE APPLICATOR As Ordered ONE (14:41)
[2017-07-03] MEDS ORDERED: LIDOCAINE 1% MDV 20ML VIAL As Ordered ONE (14:41)
[2017-07-03] MEDS ORDERED: KETOROLAC 60 MG/2 ML VIAL (J1885) As Ordered ONE (14:53)
[2017-07-03] MEDS ORDERED: ONDANSETRON 4MG/2ML VIAL (J2405) As Ordered ONE (14:53)
[2017-07-03] MEDS ORDERED: PERCOCET 5MG/325MG TAB As Ordered ONE (15:17)
[2017-07-03] MEDS ORDERED: PERCOCET 5MG/325MG TAB PO PRN (15:30)
[2017-07-03] MEDS ORDERED: ONDANSETRON 4MG/2ML VIAL (J2405) IV PRN (15:30)
[2017-07-03] MEDS ORDERED: LR 1,000 ML IV SCH (15:30)
[2017-07-03] MEDS ORDERED: fentaNYL 100 MCG/2 ML INJECTION (J3010) IV PRN (15:30)
[2017-07-03 16:00] VITALS: BP 127/76
[2017-07-03] MEDS ORDERED: DOXYCYCLINE HYCLATE 100 MG TAB PO SCH (16:00)
[2017-07-03 16:30] VITALS: BP 124/80
[2017-07-03] MEDS ORDERED: PERCOCET 5MG/325MG TAB PO ONE (17:00)
--- NOTE | 2017-07-03 17:01 | IPNPDOC ---
Text Note Date of Service The patient was seen on 07/03/17. NOTE Pharmacy called back and stated Rhogam actually is indicated after the D&C, so it is ordered and patient will receive the dose before she leaves. She is doing well per her nurse, ambulating, spontaneously voiding and tolerating some food. She is having some mild cramping, had a dose of percocet. 1 more tab ordered prior to discharge. K Lonnie VS,Robert, I+O VS, Robert, I+O Laboratory Tests 07/03/17 12:23 Red Blood Count 4.77, Mean Corpuscular Volume 84.7, Mean Corpuscular Hemoglobin 28.7, Mean Corpuscular Hemoglobin Concent 33.9, Red Cell Distribution Width 12.7 Vital Signs Date Time Temp Pulse Resp B/P (MAP) Pulse Ox O2 Delivery O2 Flow Rate FiO2 07/03/17 15:52 98.3 67 16 116/67 (83) 97 Room Air 07/03/17 15:26 2 I&O- Last 24 Hours up to 6 AM 07/04/17 06:00 Intake Total 970 ml Output Total 10 ml Balance 960 ml Belle Fleming MD Jul 03, 2017 17:01
[2017-07-03 17:30] VITALS: BP 127/71
[2017-07-03] MEDS ORDERED: RHOGAM 300 MCG (1500 IU) INJ (J2790) IM ONE (17:30)
[2017-07-03 18:30] VITALS: BP 126/72
--- NOTE | 2017-07-05 06:57 | RO ---
DATE OF PROCEDURE: 07/03/2017 PREOPERATIVE DIAGNOSIS: Missed . POSTOPERATIVE DIAGNOSIS: Missed . OPERATION PERFORMED: Suction dilation and curettage. SURGEON: Dr. Belle Fleming ENGINE DISPATCHER: ANESTHESIA: MATERIAL FORWARDED TO THE LAB FOR EXAMINATION: Products of conception. DESCRIPTION OF FINDINGS: Closed cervix, moderate amount of blood and tissue extracted from the uterus. INFECTION CLASSIFICATION: 2. ESTIMATED BLOOD LOSS: 10 mL. IV FLUIDS: 600 mL of lactated Ringers. URINE OUTPUT: Not measured. 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 She was seen again in the clinic for confirmation and again was observed to have no cardiac activity. Her hCG values decreased from 77,000 to 63,000 and then when she presented today in the ER with vaginal spotting, her quant was 20,000. She had been counseled previously on options and today when she presented to the ER definitively wanted surgical management with dilation and curettage. DESCRIPTION OF OPERATION: After obtaining informed consent, Gia was taken to the operating room where she underwent IV sedation. She was placed in low lithotomy position and the perineum and vagina were prepped and draped in sterile fashion. She had received 100 mg of by mouth doxycycline prior to the procedure and after the procedure will be given 200 mg of by mouth doxycycline. Bivalved speculum was inserted into the vagina and approximately 15 mL of 1% lidocaine were injected in four quadrants to achieve a cervical block. Anterior segment of the cervix was grasped with a single tooth tenaculum. Uterus sounded to 13 cm. Cervix was sequentially dilated using Hanks dilators. A 9 mm suction curet was introduced to the fundus of the uterus. Suction was activated at 60 cm of water. Approximately five passes of suction curettage were used to remove the intrauterine contents. Sharp curet was used and good cry was noted in 360 degrees. Two final passes with the suction curet ensured removal of all intrauterine contents. Hemostasis was noted after the procedure. The tenaculum was removed with hemostasis noted. Bivalved speculum was removed from the vagina. The patient was transferred to the recovery room in good condition. All counts were correct times two. Notably, the patient is A negative blood type and received RhoGAM when she originally presented for threatened in mid May to the ER. I spoke with the pharmacist who recommended giving her repeat dose so she will be given another dose of RhoGAM prior to leaving for home today.
== END 2017-07-03 19:00 | disposition home or self-care (01) ==
LOC: M ED 11:42 → M SDC 14:08 → M PED 16:19 → M SDC 19:00
PROVIDERS: ATTEND Obstetrics & Gynecology
DX: O02.1 Missed abortion (principal); O99.331 Smoking (tobacco) complicating pregnancy, first trimester; F17.210 Nicotine dependence, cigarettes, uncomplicated
CPT/HCPCS: 59820; 84702; 85027; 86850; 86870; 86900; 86901; 88305; 96372; 99284; J1885; J2250; J2405; J2790; J3010

== ENCOUNTER 2021-02-15 16:09 | Outpatient (CLI) | payer OTHER ==
[~2021-02-15] VITALS: Ht 167.6 cm; Wt 129.3 kg
[2021-02-15] MEDS ORDERED: PRENTAB9 PO (16:34)
--- NOTE | 2021-02-15 16:39 | IPNPDOC ---
Obstetrical Progress Note Date of Service Feb 15, 2021 Subjective Ms. Florentino is a 25yo at 38+2 presenting from clinic for continued monitoring after NST in clinic for morbid obesity. She is also having non- painful irregular contractions. She denied VB, LOF, decreased FM. She denied n/v/d, cp, sob, greene, visual changes, f/c, vaginal dc, urinary sx. Assessment Variability: Moderate Accelerations: Positive Decelerations: None Heart Rate Tracing: Category I Tocometer Contractions: Yes Frequency: irregular Sterile Vaginal Examination Dilation: 3 cm Effacement (%): 50% Station: -3 Cervical Consistency: Soft Cervical Position: Posterior Postion/Presentation: Cephalic presentation (by US) Assessment and Plan Additional Comments Ms. Florentino is a 25yo at 38+2 presenting from clinic for continued monitoring after NST in clinic for morbid obesity. She is also having non- painful irregular contractions. CAT I NST reactive. VS normal. SVE 3/50/-3 and was unchanged on repeat 2h exam. TAUS cephalic with MVP 6.2cm and good FM. Eminent active labor is unlikely at this time. NST is reassuring. ONIEL PÉREZ DO Feb 15, 2021 16:39
[2021-02-15 16:41] VITALS: BP 120/72
== END 2021-02-15 18:42 | disposition home or self-care (01) ==
LOC: M LDO 16:09
PROVIDERS: ATTEND Registered Nurse Maternal Newborn
DX: O36.8330 Maternal care for abnormalities of the fetal heart rate or rhythm, third trimester, not applicable or unspecified (principal); Z3A.38 38 weeks gestation of pregnancy; O99.213 Obesity complicating pregnancy, third trimester; E66.9 Obesity, unspecified
CPT/HCPCS: 59025; G0378; G0463

== ENCOUNTER → 2021-02-25 | Outpatient (CLI) | payer OTHER ==
[~2021-02-25] MED LIST changes: +PRENTAB9 PO
--- NOTE | 2021-02-25 16:43 | REP ---
INDICATION: PREG 39 + WKS GROWTH. COMPARISON: None. TECHNIQUE: Real-time sonographic evaluation of the gravid uterus performed. FINDINGS: Estimated gestational age is39 weeks 4 days, EDC 02/28/2021. Today's measurements indicate appropriate growth. Presentation: Cephalic Placenta left, grade 3, without evidence of placenta previa. heart rate is recorded at 140 beats per minute. Amniotic fluid is subjectively normal. AYDEN 12.7, normal 7.1-21.9. Closed cervical length is measured at 3.2 cm. SD ratio umbilical artery 2.01, normal 1.49-3.25. RI 0.50, normal 0.40-0.68. Biometry chart: BPD: 95 mm, 38 weeks 6 days, 39th percentile. HC: 336 mm, 38 weeks 3 days, 31st percentile AC: 366 mm, 40 weeks 3 days, 63rd percentile Femur length: 75 mm, 38 weeks 4 days, 35th percentile HC to AC ratio: 0.92, normal range 0.89-1.08. Estimated weight: 3843g, 75th percentile. IMPRESSION: Viable single intrauterine gestation as above. <Electronically signed by Scott Ramirez > 02/25/21 [id number]
== END ==
LOC: M RAD 14:50
PROVIDERS: ATTEND Obstetrics & Gynecology
DX: Z36.9 Encounter for antenatal screening, unspecified (principal); Z3A.39 39 weeks gestation of pregnancy

== ENCOUNTER 2021-03-01 07:27 | Inpatient (IN) | payer OTHER, SELFPAY ==
[~2021-03-01] VITALS: Ht 167.6 cm; Wt 130.3 kg
[2021-03-01] VITALS (38 sets, daily range): BP systolic 103–156; BP diastolic 53–90
[2021-03-01] MEDS ORDERED: TRANEXAMIC ACID INJection 1,000 MG in NS 100 ML IV PRN (08:05)
[2021-03-01] MEDS ORDERED: LIDOCAINE 1% MDV 20ML VIAL INFIL PRN (08:05)
[2021-03-01] MEDS ORDERED: OXYTOCIN DRIP 30 UNITS in IV 1 EA IV PRN (08:05)
[2021-03-01 08:26] LABS: HEMATOCRIT 36.3 % (36.0-47.0); HEMOGLOBIN 11.9 g/dl (12.0-15.5); MEAN CORPUSCULAR HEMOGLOBIN 27.3 pg (27.0-33.0); MEAN CORPUSCULAR HGB CONC 32.8 g/dl (32.0-36.5); MEAN CORPUSCULAR VOLUME 83.3 fl (80.0-96.0); PLATELET COUNT, AUTOMATED 345 10^3/uL (150-450); RED BLOOD COUNT 4.36 10^6/uL (4.00-5.40); WHITE BLOOD COUNT 10.9 10^3/uL (4.0-10.0)
[2021-03-01] MEDS ORDERED: PENICILLIN G POTASSIUM IV 5 MU in D5W MINI-BAG PLUS 100 ML IV STA (08:34)
[2021-03-01] MEDS ORDERED: CARBOPROST TROMETHAMINE 250 MCG/ML AMP IM PRN (08:35)
[2021-03-01] MEDS ORDERED: METHYLERGONOVINE MALEATE 0.2 MG/ML VIAL (J2210) IM PRN (08:35)
[2021-03-01] MEDS ORDERED: OXYTOCIN DRIP 30 UNITS in IV 1 EA IV SCH (08:35)
--- NOTE | 2021-03-01 08:52 | HPEPDOC ---
Obstetrical History & Physical General Date of Admission Mar 01, 2021 at 07:27 History of Present Illness 25yo at 40w1d with DHEERAJ Feb presents for scheduled IOL. Pt doing well and without complaint. Reports occasional contractions, denies LOF, VB or discharge. +GFM. Chief Complaint: Other (scheduled IOL) Care Care: Good Care Dating Final EDC: Feb 28, 2021 Final EDC by: 1st trimester (US) Antepartum Course Diagnos(e)s GBS +, no allergies to abx depression/anxiety obesity Rh neg - s/p Rhogam 4 December Quad screen +, anatomy normal Oral HSV Past Medical History Past Obstetrical History #1: Past Obstetrical History: Multigravida Gestation: 6 (SAB, expectant management) Past Obstetrical History #2: Gestation: 6 (D&C) Past Obstetrical History #3: Gestation: 39 Type of Delivery: Spontaneous Vaginal Del. Complications: No ( with club foot ) Past Medical History Medical History Obesity PCOS Surgical History: Other (ORIF of arm, D&C x1) Family History Significant Family History: Other ([place] ancestry. Club foot in first child) Social History Marital Status: Family situation: Spouse/partner home * Smoker: non-smoker Alcohol: Denies Imunizations Tdap status: current (12/18/20) Allergies Coded Allergies: No Known Allergies (Unverified , 05/25/17) Medications Scheduled No.137/Iron/Folic Acd ( Vitamin Tablet) 1 Each Tablet, 1 TAB PO DAILY Physical Examination Physical Examination GENERAL: Alert and oriented times three. BREAST: . ABDOMEN: Gravid and non-tender to touch. FETUS: Is vertex (VTX) by sterile vaginal examination (SVE) HEART RATE: Regular rate LUNGS: normal work of breathing EXTREMITIES: No edema. Vital Signs/I&O Vital Signs Date Time Temp Pulse Resp B/P (MAP) Pulse Ox O2 Delivery O2 Flow Rate FiO2 03/01/21 07:42 96.0 110 124/85 (98) Laboratory Data 24H LABS Laboratory Tests 2 03/01/21 07:41: Serology Scanned Report Hepatitis B Testing 03/01/21 08:10: Nucleated Red Blood Cells % (auto) 0.0 CBC/BMP Laboratory Tests 03/01/21 08:10 Pertinent Laboratoy Data Blood Type: A- RBC Antibody Screen: Negative HIV: Negative Hepatitis B: Negative Rapid Plasma Reagin: Nonreactive Rubella: Immune Chlamydia/Gonorrhea: Negative Group B Streptococcus: Positive Quad Screen Test: Positive (MFM anatomy normal) Cystic Fibrosis: Negative Glucose Tolerance Test: 106 Anatomy Ultrasound Ultrasound Date: Oct 08, 2020 Placenta Location: Posterior Normal Anatomy: Yes Placenta Previa: No Vaginal Examination Dilation: 3 cm Effacement: 50% Station: -2 Cervical Consistency: Soft Cervical Position: Posterior Presentation: Cephalic presentation Assessment Heart Rate (FHR): 130 Variability: Moderate Accelerations: Positive Decelerations: None Tocometer Frequency: irregular Assessment/Plan Assessment 25yo at 40w1d by 1TM , DHEERAJ 22 Feb presents for scheduled IOL. GBS +, no allergies to abx depression/anxiety obesity Rh neg - s/p Rhogam 4 May Quad screen +, anatomy normal Oral HSV Plan Admit and orient. 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 Diet: clears. Group B Streptococcus (GBS) positive, PCN for GBS prophylaxis. Discussed AROM after second dose, pt amenable Labs and intravenous (IV) per unit protocol. Counseled on Pitocin and induction of labor (IOL) with pitocin. Anticipate normal spontaneous vaginal delivery C-S as appropriate. Labor and Delivery Counseling We will deliver your baby through the vagina with possible assistance of forceps or vacuum device if needed for maternal or indications. Forceps and vacuum are devices that can assist with vaginal delivery when normal pushing efforts cannot achieve delivery on their own or when delivery is needed in an emergency for baby's well-being. Medications may be required to induce or augment (help) your labor in order to achieve a vaginal delivery. An episiotomy may be required to help your baby to delivery vaginally. You may also require repair of any lacerations or tears of your vagina or vulva that are caused by delivery. In some cases, emergencies can occur that require an emergency section del duong so quickly that there may not be enough time to stop and complete consent forms for section. Understand that if this occurs, your providers will discuss the need for a section with you before they proceed with surgery. section is the delivery of your baby through an incision in your abdomen. In some situations, section may be safer to mom and baby than continuing labor and is only performed when clinically indicated. Risks of vaginal delivery include but are not limited to: Bleeding, infection, injury to the vagina, pelvic structures, injury to baby, damage to the uterus, reactions to anesthesia, uterine rupture, risk of hysterectomy for life threat ening bleeding, or . Medications used to induce or augment labor may increase your risk for infection, uterine tachysystole, uterine rupture, heart rate abnormalities, need for emergency delivery or possible hysterectomy, and hemorrhage. Additional risks for use of forceps and vacuum include: increased risk of perineal and vaginal lacerations, risk of urinary or bowel incontinence, increased risk of injury to baby with bruising, scratches, hematomas on the head, or intracranial bleeding. MANOJ DIEGO M.D. Mar 01, 2021 08:52
[2021-03-01] MEDS: LR 1,000 ML IV SCH ×2 (09:14→13:45)
[2021-03-01] MEDS: PENICILLIN G POTASSIUM IV 2.5 MU in IV 1 EA IV SCH ×2 (14:05→17:42)
--- NOTE | 2021-03-01 19:10 | IPNPDOC ---
Obstetrical Progress Note Date of Service Mar 01, 2021 Subjective To patient's room for assessment. Patient comfortable in chair. States she is beginning to feel stronger contractions. Denies LOF, VB. +GFM Objective Vital Signs Date Time Temp Pulse Resp B/P (MAP) Pulse Ox O2 Delivery O2 Flow Rate FiO2 03/01/21 18:19 83 131/73 (92) 03/01/21 09:19 97.5 18 Assessment Heart Rate (FHR): 140 Variability: Moderate Accelerations: Positive Decelerations: None Heart Rate Tracing: Category I Tocometer Contractions: Yes Frequency: regular (2-4 min. Pitocin at 14mU) Sterile Vaginal Examination Dilation: 3 cm Effacement (%): 50% Station: -2 Cervical Consistency: Soft Cervical Position: Middle Assessment and Plan Anticipate: Vaginal Delivery Additional Comments Offered to continue increasing pit vs. proceed with AROM to continue IOL. Pt is now s/p 2 doses of PCN for GBS ppx. Pt opting for AROM at this time. AROM at 1850, clear fluid. FSE placed due to difficulty tracing fetus. MANOJ DIEGO M.D. Mar 01, 2021 19:10
[2021-03-01] MEDS ORDERED: FENTANYL 2MCG/ML ROPIVACAINE 0.2% IN 0.9% NACL 100ML IVBAG As Ordered ONE (19:34)
[2021-03-01] MEDS ORDERED: NALOXONE INJ 0.4MG/1ML VIAL (J2310 PER 1MG) IV PRN (20:00)
[2021-03-01] MEDS ORDERED: ePHEDrine SULFATE 25 MG/5 ML(5MG/ML) SYRINGE IV PRN (20:00)
[2021-03-01] MEDS ORDERED: EPIDURAL/PCA KEYS XX PRN (20:00)
[2021-03-01] MEDS ORDERED: LACTATED RINGER'S 1000 ML IV PRN (20:00)
[2021-03-01] MEDS ORDERED: diphenhydrAMINE 50MG/ML VIAL (J1200) IV PRN (20:00)
[2021-03-01] MEDS ORDERED: ONDANSETRON 4MG/2ML VIAL IV PRN (20:00)
[2021-03-01] MEDS ORDERED: FENTANYL/ROPIVACAINE/NACL BAG 100 ML EPIDURAL SCH (20:00)
[2021-03-01] MEDS ORDERED: EPIDURAL COMMENT XX SCH (20:00)
[2021-03-01] MEDS ORDERED: REFRIGERATOR IV KEYS XX PRN (20:00)
[2021-03-01] MEDS ORDERED: MOM 30ML SUSPENSION UDC PO PRN (20:45)
[2021-03-01] MEDS ORDERED: METHYLERGONOVINE MALEATE 0.2 MG TAB PO PRN (20:45)
[2021-03-01] MEDS ORDERED: IBUPROFEN 600MG TAB PO PRN (20:45)
[2021-03-01] MEDS ORDERED: DIBUCAINE 1% OINTMENT 30GM TOP PRN (20:45)
[2021-03-01] MEDS ORDERED: RHOGAM 300 MCG (1500 IU) INJ (J2790) IM SCH (20:45)
[2021-03-01] MEDS ORDERED: DOCUSATE SODIUM 100MG CAPSULE PO PRN (20:45)
[2021-03-01] MEDS ORDERED: ACETAMINOPHEN TAB 650MG DOSE (2X325MG) PO PRN (20:45)
[2021-03-01] MEDS ORDERED: MEASLES,MUMPS,RUBELLA VACCINE INJ (MMR-II) (90707) SC SCH (20:45)
[2021-03-01] MEDS ORDERED: ACETAMINOPHEN 500 MG TAB PO PRN (20:45)
--- NOTE | 2021-03-01 21:09 | DNPDOC ---
[facility] Delivery Note Delivery Note DATE OF DELIVERY: 03/01/21 PREDELIVERY DIAGNOSIS: 40-1/7 weeks' gestation and labor. POST DELIVERY DIAGNOSIS: Delivered. PROCEDURE: Spontaneous vaginal delivery WATER MAIN PIPE LAYER: Dr. iDego ANESTHESIA: epidural ESTIMATED BLOOD LOSS: 300 mL. FINDINGS: 9 pound 10 ounce female infant, Score 8/9, terminal meconium at delivery DELIVERY SUMMARY: 25yo at 40w1d with DHEERAJ 28 Feb 2021 admitted for scheduled IOL. Pt received pitocin up to 14mU, followed by AROM with clear fluid. Pt quickly progressed to C/C/+3 and felt the urge to push. With excellent pushing efforts, pt delivered head over intact perineum. Head restituted to ROT. Infant's shoulder did not deliver easily, therefore pt legs reset and placed in Abby. Anterior shoulder then delivered followed by remainder of body with terminal meconium noted. placed on mother's chest and noted to be crying and moving all extremities. Cord clamped/cut. Placenta delivered intact. perineum inspected with no lacerations noted. EBL 300cc. Mom and baby stable immediately . MANOJ DIEGO M.D. Mar 01, 2021 21:09
[2021-03-01] MEDS: IBUPROFEN 800 MG TAB PO PRN (23:23)
--- NOTE | 2021-03-02 04:02 | IPNPDOC ---
Progress Note Date of Service: Mar 02, 2021 Progress Note SUBJECT: 25yo G4 now P2022 status post uncomplicated spontaneous vaginal delivery at 40 1/7 weeks' at approximately 2100 hours on of a female infant 9 pounds 10ounces doing well day # 1. She has been ambulating, voiding spontaneously without issue and tolerating regular diet. Breast feeding without issue. Reports lochia is minimal. OBJECTIVE: VITAL SIGNS: Within normal limits, afebrile. Alert and oriented times three. normal work of breathing Heart rate: Regular rate Abdomen: Fundus firm at U-2. Soft, NTTP. ASSESSMENT: 25yo G4 now P2022 status post uncomplicated spontaneous vaginal delivery at 40 1/7 weeks' at approximately 2100 hours on of a female infant 9 pounds 10 ounces . Vitals within normal limits, afebrile, he modynamically stable with no evidence of infection. PLAN: 1. Discharge to home tomorrow AM (delivered late last night). 2. Tylenol and Motrin for pain. 3. Encourage breast feeding and ambulation. 4. Plans to follow up with contraception at 6wk visit. Interested in Nexplanon 5. Routine PP visit in 6 weeks in clinic. VS, I&O, 24H, Fishbone Vital Signs/I&O Vital Signs Date Time Temp Pulse Resp B/P (MAP) Pulse Ox O2 Delivery O2 Flow Rate FiO2 03/01/21 23:14 98.0 84 18 129/75 (93) 99 I&O- Last 24 Hours up to 6 AM 03/02/21 06:00 Intake Total 1120 ml Output Total 750 ml Balance 370 ml Laboratory Data 24H LABS Laboratory Tests 2 03/01/21 07:41: Serology Scanned Report Hepatitis B Testing 03/01/21 08:10: Nucleated Red Blood Cells % (auto) 0.0, Syphilis Serology NONREACTIVE CBC/BMP Laboratory Tests 03/01/21 08:10 MANOJ DIEGO M.D. Mar 02, 2021 04:02
[2021-03-02 06:13] VITALS: BP 117/70
[2021-03-02] MEDS: ENOXAPARIN 40MG/0.4ML SYRINGE (J1650 PER 10MG) SC SCH (08:11)
[2021-03-02] MEDS: PRENATAL VITAMINS CHEWABLE TABLET PO SCH (08:11)
[2021-03-02] MEDS: IBUPROFEN 800 MG TAB PO PRN (15:06)
[2021-03-02 18:02] VITALS: BP 133/81
[2021-03-03 06:06] VITALS: BP 110/66
[2021-03-03] MEDS ORDERED: IBUP-1022 PO (08:03)
[2021-03-03] MEDS ORDERED: DOK1CAP7 PO (08:03)
[2021-03-03] MEDS: PRENATAL VITAMINS CHEWABLE TABLET PO SCH (08:12)
[2021-03-03] MEDS: ENOXAPARIN 40MG/0.4ML SYRINGE (J1650 PER 10MG) SC SCH (08:12)
[2021-03-03] MEDS: IBUPROFEN 800 MG TAB PO PRN (08:12)
--- NOTE | 2021-03-03 09:06 | DSES ---
DISCHARGE SUMMARY DATE OF ADMISSION: 03/01/2021 DATE OF DISCHARGE: 03/03/2021 BRIEF HISTORY: This lady is a 2 now para 2 admitted for induction of labor at 40 and 1 weeks of gestation. Risks factors: She was GBS positive, morbidly obese and PCOS. She had an epidural in place and delivered a livebirth female infant weighing 9 pounds, 10 ounces, Apgars of 8 and 9 at 1 and 5 minutes respectively. Terminal meconium was noted at delivery. Her admitting hemoglobin was 11.9, hematocrit was 36.3 and platelets were 345,000. PHYSICAL EXAMINATION: Her vital signs on discharge: Her blood pressure was 110/66, respirations 16, pulse was 68, and temperature 97.3. The rest of the examination is unremarkable. Normocephalic, atraumatic. Neck: Full range of motion. Pupils equal and reactive to light. Distal pulses are symmetric. No evidence of DVT, PE or superficial phlebitis. Chest is clear bilaterally at bases. No wheezes or rhonchi. No CVA tenderness. Abdomen is soft, four quadrant bowel sounds are noted. Uterus is 2 below. Perineum is intact. No rashes, lesions or pruritus. No arthralgia or myalgia. No complaint of joint pain. No complaint of cough, wheeze, shortness of breath or dyspnea on exertion. No nausea, vomiting, diarrhea or constipation. No urgency or frequency. In summary: Term gestation. Delivered livebirth female infant. 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 A six week checkup at [facility] which control will be discussed. All questions answered. A 20 minute discussion. Patient was discharged improved.
== END 2021-03-03 11:05 | disposition home or self-care (01) | DRG 807 ==
LOC: M LDI 07:27 → M OBS 23:01
PROVIDERS: ADMIT Obstetrics & Gynecology; ATTEND Obstetrics & Gynecology
PROC: 10E0XZZ Delivery of Products of Conception, External Approach (ICD-10-PCS; principal; 2021-03-01)
PROC: 10907ZC Drainage of Amniotic Fluid, Therapeutic from Products of Conception, Via Natural or Artificial Opening (ICD-10-PCS; 2021-03-01)
PROC: 3E033VJ Introduction of Other Hormone into Peripheral Vein, Percutaneous Approach (ICD-10-PCS; 2021-03-01)
DX: O48.0 Post-term pregnancy (principal); Z37.0 Single live birth; Z3A.40 40 weeks gestation of pregnancy; O99.824 Streptococcus B carrier state complicating childbirth; O77.0 Labor and delivery complicated by meconium in amniotic fluid; E66.01 Morbid (severe) obesity due to excess calories; O99.214 Obesity complicating childbirth

== ENCOUNTER 2021-08-26 20:21 | Emergency (ER) | payer OTHER ==
[~2021-08-26] VITALS: Ht 170.2 cm; Wt 104.3 kg
[2021-08-26 20:21] VITALS: BP 143/96
[~2021-08-26 20:21] MED LIST changes: +DOK1CAP4 PO; +IBUP-1022 PO
== END 2021-08-26 23:28 | disposition left against medical advice (07) ==
LOC: M ED 20:21
DX: Z53.21 Procedure and treatment not carried out due to patient leaving prior to being seen by health care provider (principal)

== ENCOUNTER → 2023-12-12 | Outpatient (REF) | payer OTHER | LOC: M LAB REF 19:01 | PROVIDERS: ATTEND Student in an Organized Health Care Education/Training Program | DX: R30.0 Dysuria (principal) ==